=== PATIENT | male | born 1970 | race Caucasian/White ===

== ENCOUNTER 2019-02-12 06:59 | Observation (INO) | payer OTHER, SELFPAY ==
[2019-02-12] VITALS (16 sets, daily range): BP systolic 119–170; BP diastolic 67–94; PULSE 51–91; RESP 10–18; TEMP 36.3–37.2; O2SAT 93–100; BMI 21.9; BMI 23.1
--- NOTE | 2019-02-12 07:35 | EKG12_ITS ---
Test Reason : ABDOMINAL PAIN Blood Pressure : / mmHG Vent. Rate : 050 BPM Atrial Rate : 050 BPM P-R Int : 160 ms QRS Dur : 096 ms QT Int : 490 ms P-R-T Axes : 065 086 070 degrees QTc Int : 446 ms Sinus bradycardia Low voltage QRS (limb leads) Confirmed by CHRISTEL MAURICE, EMILY ([id number]), purchase request editor AMELIA ZHOU ([id number]) on 02/16/2019 6:29:34 AM Referred By: Emelyn Juan Confirmed By:EMILY KEARNEY MD
--- NOTE | 2019-02-12 07:35 | CT_ITS ---
STUDY: CT ABDOMEN AND PELVIS WITH CONTRAST REASON FOR EXAM: Male, 48 years old. Upper abdominal pain. RADIATION DOSAGE (If Supplied By Facility): CTDIvol = ( 14.91 ) mGy, DLP = ( 1434.79 ) mGycm TECHNIQUE: Transaxial images were obtained from the dome of the diaphragm to the symphysis pubis with oral contrast. 100 IV/Oral Isovue 300 was administered. Sagittal and coronal images were reconstructed. Individualized dose optimization techniques were used for this CT. COMPARISON: None. FINDINGS: The visualized lung bases are unremarkable. The visualized portions of the heart are within normal limits. Normal liver. Normal gallbladder and extrahepatic biliary system. Normal spleen. Normal pancreas. Normal bilateral adrenal glands. Normal right kidney. There is a 2.5 cm cyst in the upper pole of the left kidney. The stomach is distended with oral contrast. There is thickening of the distal portion of the stomach. Gastric outlet obstruction should be ruled out. Normal small intestine. There are multiple colonic diverticula consistent with diverticulosis. The appendix is visualized and appears normal. There is diffuse atherosclerotic calcification of the abdominal aorta, without a demonstrated aneurysm. Normal inferior vena cava. There is borderline retroperitoneal lymphadenopathy with enlarged nodes no greater than 10mm in the short axis diameter. Edematous changes are seen in the mesentery. Inflammatory changes see be ruled out. Normal urinary bladder. There is enlargement of the seminal vesicles bilaterally. Small amount of free fluid is seen in the pelvis. Normal abdominal wall. Spondylosis and disc space narrowing at the L3-L4 level. CT/Abdomen/Pelvis WITH Contrast IMPRESSION: The stomach is distended with oral contrast. There is thickening of the distal portion of the stomach. Gastric outlet obstruction should be ruled out. There is evidence of edematous changes within the mesentery. Inflammatory process should be ruled out. Electronically Signed: Valeriano Martin, at 10:09 EDT , Service support ,
[2019-02-12] MEDS: Ondansetron 4 MG/2 ML Vial IV ×2 (07:46→08:26)
[2019-02-12] MEDS: HYDROmorphone 1 MG/ML Syringe IV ×3 (07:46→13:35)
[2019-02-12] MEDS: 0.9% Normal Saline 1,000 ML 125 ML IV (07:46)
[2019-02-12 07:56] LABS: Absolute Lymphocyte Count 1.11 X10^3/ul (0.83-4.51); Basophil# 0.02 X10^3/uL; Basophil% 0.2 % (0-1); Eosinophil# 0.09 X10^3/uL; Eosinophils% 0.7 % (0-5); Lymphocyte # 1.11 X10^3/ul (4.0); Lymphocyte % 8.7 % (19-41); Mean Corp Hgb Conc 35.6 g/gl (32-36); Mean Corpuscular Hgb 31.1 pg (27.0-32.0); Mean Corpuscular Volume 87.5 fL (80-94); Mean Platelet Vol. 10.4 fl (6.2-12.0); Monocyte# 0.52 X10^3/uL; Monocyte% 4.1 % (0-10); Neutrophil # 10.96 X10^3/uL (2.7-7.7); Neutrophil % 86.1 % (47-70); Platelet Count 286 K/mm3 (150-450); RBC Distribution Width CV 13.8 % (11.6-14.6); RBC Distribution Width SD 44.4 fl (35.1-43.9); Red Blood Count 5.14 M/mm3 (4.6-6.2); White Blood Count 12.7 K/mm3 (4.4-11.0)
[2019-02-12 07:59] LABS: POSITIVE COUNT NO; POSITIVE DIFFERENTIAL NO; POSITIVE MORPHOLOGY NO
[2019-02-12 08:13] LABS: AST(SGOT) 14 U/L (15-37); Alanine Aminotransfer ALT/SGPT 15 U/L (16-61); Albumin, Serum 3.9 g/dL (3.2-5.0); Alkaline Phosphatase 105 U/L (45-117); Anion Gap 8 (5-15); BUN 11 mg/dL (7-18); BUN/Creat Ratio 12.7 RATIO (10-20); Chloride 99 mmol/L (98-107); Creatinine, Serum 0.87 mg/dL (0.70-1.30); EST Glomerular Filtration Rate 99 mL/min (>60); Est Glom Filt Rate - Afr Amer 120 mL/min (>60); Estimated Creatinine Clearance 105.32 ml/min; Globulin 3.9 g/dL (2.2-4.2); Glucose 137 mg/dL (74-106); Lipase 84 U/L (73-393); Potassium 3.9 mmol/L (3.5-5.1); Protein, Total 7.8 g/dL (6.4-8.2); Sodium Level 133 mmol/L (136-145)
[2019-02-12 11:00] LABS: Bacteria 0 SEEN /hpf (None Seen); Mucous, Urine 0 SEEN /hpf (<or=2+); Squamous Epithelial Cells - UA 0 SEEN /hpf (0-5); White Blood Cells 0 SEEN /hpf (0-5)
[2019-02-12 11:03] LABS: Color, Urine Yellow (Yellow); Glucose, Dipstick 50 mg/dl (Normal); Ketone-Dipstick 15 mg/dl (Negative); Leukocyte Esterase-Dipstick Negative /ul (Negative); Nitrite-Dipstick Negative (Negative); Occult Blood-Urine 25 /ul (Negative); Protein-Dipstick 15 mg/dl (Negative); Specific Gravity, Urine 1.005 (1.002-1.030); Urine Bilirubin Dipstick Negative (Negative); Urine Clarity Clear (Clear); Urine Urobilinogen Normal (Normal)
[2019-02-12 11:10] LABS: Red Blood Cells-Urine 0-5 SEEN /hpf (0-5)
--- NOTE | 2019-02-12 11:51 | ED.DCSUM_ITS ---
- ER Visit Summary Date of Service: 02/12/19 Chief Complaint: [Abdominal pain] History of Present Illness: The patient is a 48 M [presents the emergency department with sudden onset of abdominal pain that woke him up around 3 AM. Patient states the pain is been continuous in the upper abdomen. He had some sweats. He denies any fever. Said no vomiting. Patient rates his pain as 10 out of 10. He is never had pain like this before. He denies any diarrhea or blood in his stool. No history of GERD or peptic ulcer disease.] Physical Examination: [HEENT-PERRLA, EOMI. Cranial nerves II through XII grossly intact. TMs clear. Mucous membranes moist. No adenopathy. Cardiovascular-regular rate and rhythm without murmur or ectopy Lungs-clear to auscultation, chest wall stable without crepitus or subcu emphysema Abdomen-normoactive bowel sounds, soft. Patient has diffuse tenderness over the upper abdomen especially the epigastric region with guarding. There is no rebound, rigidity, or perineal signs. No pulsatile masses noted. Extremities-intact ?4, normal range of motion, normal pulses, atraumatic] Test Results: [CBC with differential white count of 12.7, hemoglobin 16, hematocrit 45, placed 286. Chemistries unremarkable. LFTs were normal. Lipase was 84. Troponin is less than 0.015. Lactate was normal at 1.0. EKG showed a sinus rhythm with a ventricular rate of 50 bpm with no acute I segment changes. CT scan of the abdomen pelvis showed thickening of the distal portion of the stomach and gastric outlet obstruction should be ruled out. Patient also had edematous changes within the mesentery inflammatory process should be ruled out.] Emergency Department Course and Treatment: [Patient was medicated with Dilaudid and Zofran and had to be remedicated with Dilaudid for continued pain.] Treatment Plan: [Case was discussed with general surgeon on-call Dr. Juan who will admit patient. I was asked to pace NG tube to low intermittent suction which was ordered.] Disposition: [Admit] Impression: [Abdominal pain Gastric outlet obstruction] This note was generated with [employer] dictation software. It may contain incorrect words, spelling, and punctuation that were not noted in review of the chart prior to signing ED Disposition - Plan for ED Patient: Referrals: Care Physician,No Primary [Primary Care Provider] -
--- NOTE | 2019-02-12 12:47 | NURSING ---
RN RECEIVED NOTIFICATION FROM MONISHA THAT PIECER ORDERED TO HOLD NG AND NOT INSERT
--- NOTE | 2019-02-12 14:03 | HP.PCM_ITS ---
<Emelyn Juan - Last Filed: 02/12/19 15:19> History of Present Illness The patient is a 48 year old M patient did have continued abdominal pain today and needed Dilaudid 1 mg. Patient's last got Dilaudid at 1:30 PM. Patient last had about bowel movement yesterday which was normal denies any family history of ulcerative colitis or Crohn's disease. Patient denies ever having pain like this previously. Patient did have some nausea vomiting after drinking oral contrast. He also recently just had some nausea and vomiting. Patient states that prior to 3 AM he was feeling normal and not having any issues. Past Medical History Allergies adhesive tape Adverse Reaction (Verified 02/12/19 14:39) Rash Home Medications: Ambulatory Orders Medication Instructions Recorded NK 02/12/19 Surgical History: - - Patient had a right chest tube due to a spontaneous pneumothorax Psychiatric History: No pertinent psych hx Lives: With Family Smoking Status: Current every day smoker Tobacco Use: Cigarettes - *Family History Maternal History Items: No pertinent history Review of Systems Constitutional: Denies: Anorexia, Fever Gastrointestinal: Reports: Abdominal Pain, Nausea, Vomiting Genitourinary: Denies: Dysuria VTE Information - Inpt Only VTE Present on Admission: Yes VTE Mechan Device Prophylaxis: SCD's VTE Pharm Prophylaxis ordered?: No Reason prophylaxis not ordered:: Medical Contraindication - surgery Patient Problems: Active and Suspected Problems Abdominal pain (Acute) - Physical Exam General: Alert, Oriented x3, Cooperative, No apparent distress Lungs: Normal air movement Cardiovascular: Regular rate Abdomen: Soft, Non-Distended, Tender - periumb, no PS Extremities: No clubbing, No cyanosis, No edema Neurological: Cranial nerves II-XII grossly intact Psych/Mental Status: Normal Affect Vital Signs Temp Pulse Resp BP Pulse Ox 97.8 F 67 16 152/93 H 98 02/12/19 14:43 02/12/19 14:43 02/12/19 14:43 02/12/19 14:43 02/12/19 14:43 Oxygen Delivery Method Room Air Weight: 170 lb 6 oz Body Mass Index (BMI) 23.1 Laboratory Tests Past 24 Hrs 02/12/19 02/12/19 02/12/19 07:45 07:45 07:50 WBC 12.7 H RBC 5.14 Hgb 16.0 Hct 45.0 MCV 87.5 MCH 31.1 MCHC 35.6 RDW 13.8 RDW Differential 44.4 H Plt Count 286 MPV 10.4 Immature Gran % (Auto) 0.200 Neut % (Auto) 86.1 H Lymph % (Auto) 8.7 L Isabela % (Auto) 4.1 Eos % (Auto) 0.7 Baso % (Auto) 0.2 Absolute Neuts (auto) 11.0 H Absolute Lymphs (auto) 1.11 Total Counted Not Reportable Sodium 133 L Potassium 3.9 Chloride 99 Carbon Dioxide 26.0 Anion Gap 8 BUN 11 Creatinine 0.87 Estim Creat Clear Calc 105.32 Est GFR (MDRD) Af Amer 120 Est GFR (MDRD) Non-Af 99 BUN/Creatinine Ratio 12.7 Glucose 137 H Lactic Acid 1.0 Calcium 9.0 Total Bilirubin 0.30 AST 14 L ALT 15 L Alkaline Phosphatase 105 Troponin I < 0.015 Total Protein 7.8 Albumin 3.9 Globulin 3.9 Albumin/Globulin Ratio 1.0 Lipase 84 Urine Color Urine Clarity Urine pH Ur Specific [place] Urine Protein Urine Glucose (UA) Urine Ketones Urine Occult Blood Urine Nitrite Urine Bilirubin Urine Urobilinogen Ur Leukocyte Esterase Urine RBC Urine WBC Ur Squamous Epith Cells Urine Bacteria Urine Mucus 02/12/19 02/12/19 10:55 14:30 WBC RBC Hgb Hct MCV MCH MCHC RDW RDW Differential Plt Count MPV Immature Gran % (Auto) Neut % (Auto) Lymph % (Auto) Isabela % (Auto) Eos % (Auto) Baso % (Auto) Absolute Neuts (auto) Absolute Lymphs (auto) Total Counted Sodium Potassium Chloride Carbon Dioxide Anion Gap BUN Creatinine Estim Creat Clear Calc Est GFR (MDRD) Af Amer Est GFR (MDRD) Non-Af BUN/Creatinine Ratio Glucose Lactic Acid 0.8 Calcium Total Bilirubin AST ALT Alkaline Phosphatase Troponin I Total Protein Albumin Globulin Albumin/Globulin Ratio Lipase Urine Color Yellow Urine Clarity Clear Urine pH 7.0 Ur Specific [place] 1.005 Urine Protein 15 H Urine Glucose (UA) 50 H Urine Ketones 15 H Urine Occult Blood 25 H Urine Nitrite Negative Urine Bilirubin Negative Urine Urobilinogen Normal Ur Leukocyte Esterase Negative Urine RBC 0-5 SEEN Urine WBC 0 SEEN Ur Squamous Epith Cells 0 SEEN Urine Bacteria 0 SEEN Urine Mucus 0 SEEN Assessment/Plan All Active Problems Abdominal pain (Acute) 48-year-old male with dilated stomach, edema of the small bowel mesentery, leukocytosis of 12.7 1. Initially plan to do an EGD take a look at the patient's stomach however patient still continued to have abdominal pain and he does have quite a bit of edema to the distal small bowel question is whether this edema could be due to any issues with blood supply or possible internal hernia no these are not obvious on CT. Patient's lactic acid has been within normal range the patient continues to have pain even after getting 1 of Dilaudid. Discussed the procedure with the patient and his diagnostic laparoscopy, possible laparotomy, possible bowel resection. Including risk but not limited to bleeding, infection, injury to another organ, and anesthesia patient currently does not want to make a decision until he sees his kids. left to go get his kids. He is aware that we are planning surgery for this evening. Patient no further questions at this time. He does understand that we may not find anything and mesentery of bowel may be edematous or there could be a possible he rnia which we may be able to rearrange or he may need bowel resection. Emelyn Juan M.D. Pager: [phone] [facility] [address] [place] [address], [facility], [address] [place] [address] Office: [phone] <Sheela Mosley - Last Filed: 02/12/19 15:43> Problem List (1) Abdominal pain Status: Acute History of Present Illness Date of Admission: 02/12/19 Chief Complaint: Abdominal pain The patient is a 48 year old M who presents with severe abdominal pain starting at 0300 AM this morning. Patient denies nausea, vomiting. He denies change in bowel habits. He has never had this pain previously. CT scan of the ab/pel demonstrated The stomach is distended with oral contrast. There is thickening of the distal portion of the stomach. Concerning for gastric outlet obstruction. There is evidence of edematous changes within the mesentery. Patient denies history of diabetes. He notes only procedure was chest tube placement. Patient denies previous abdominal surgery. Past Medical History Allergies No Known Allergies Allergy (Verified 02/12/19 07:00) Surgical History: - Smoking Status: Current every day smoker Alcohol: Occasional Drugs: Marijuana - *Family History Paternal History Items: Diabetes Review of Systems Constitutional: Denies: Anorexia, Fever HEENT: Denies: Head Aches, Sinus Congestion, Sinus Drainage Cardiovascular: Denies: Chest Pain, Palpitations Respiratory: Denies: Cough, Shortness of breath at rest, Sputum production Gastrointestinal: Reports: Abdominal Pain, Nausea, Vomiting Genitourinary: Denies: Dysuria Musculoskeletal: Denies: Joint Pain, Joint Tenderness Skin: Denies: Rash, Wounds Neurological: Denies: Numbness, Tingling, Focal weakness Psychiatric: Denies: Anxiety, Depression, Homicidal Ideations, Suicidal Ideations Hematologic/ Lymphatic: Denies: Easy Bruising, Easy Bleeding VTE Information - Inpt Only VTE Present on Admission: Yes VTE Mechan Device Prophylaxis: SCD's - Physical Exam General: Alert, Oriented x3, Cooperative HEENT: Atraumatic, PERRLA, EOMI, Normocephalic Neck: Supple, No JVD, Negative Carotid Bruits Lungs: Clear to auscultation, Normal air movement Cardiovascular: Regular rate, No murmurs Abdomen: Bowel Sounds Present, Soft, Non-Distended, Tender - epigastric region Extremities: No clubbing, No cyanosis, No edema, Capillary Refill Less than 3 Seconds Skin: No rashes, No breakdown Musculoskeletal: No Tenderness to Palpation of Joints or Extremities Neurological: Cranial nerves II-XII grossly intact Psych/Mental Status: Normal Affect Vital Signs Temp Pulse Resp BP Pulse Ox 98 F 57 L 10 L 167/91 H 95 02/12/19 11:00 02/12/19 11:00 02/12/19 11:00 02/12/19 11:00 02/12/19 11:00 Oxygen Delivery Method Room Air Weight: 161 lb 9.581 oz Body Mass Index (BMI) 21.9 Laboratory Tests Past 24 Hrs 02/12/19 02/12/19 02/12/19 07:45 07:45 07:50 WBC 12.7 H RBC 5.14 Hgb 16.0 Hct 45.0 MCV 87.5 MCH 31.1 MCHC 35.6 RDW 13.8 RDW Differential 44.4 H Plt Count 286 MPV 10.4 Immature Gran % (Auto) 0.200 Neut % (Auto) 86.1 H Lymph % (Auto) 8.7 L Isabela % (Auto) 4.1 Eos % (Auto) 0.7 Baso % (Auto) 0.2 Absolute Neuts (auto) 11.0 H Absolute Lymphs (auto) 1.11 Total Counted Not Reportable Sodium 133 L Potassium 3.9 Chloride 99 Carbon Dioxide 26.0 Anion Gap 8 BUN 11 Creatinine 0.87 Estim Creat Clear Calc 105.32 Est GFR (MDRD) Af Amer 120 Est GFR (MDRD) Non-Af 99 BUN/Creatinine Ratio 12.7 Glucose 137 H Lactic Acid 1.0 Calcium 9.0 Total Bilirubin 0.30 AST 14 L ALT 15 L Alkaline Phosphatase 105 Troponin I < 0.015 Total Protein 7.8 Albumin 3.9 Globulin 3.9 Albumin/Globulin Ratio 1.0 Lipase 84 Urine Color Urine Clarity Urine pH Ur Specific [place] Urine Protein Urine Glucose (UA) Urine Ketones Urine Occult Blood Urine Nitrite Urine Bilirubin Urine Urobilinogen Ur Leukocyte Esterase Urine RBC Urine WBC Ur Squamous Epith Cells Urine Bacteria Urine Mucus 02/12/19 10:55 WBC RBC Hgb Hct MCV MCH MCHC RDW RDW Differential Plt Count MPV Immature Gran % (Auto) Neut % (Auto) Lymph % (Auto) Isabela % (Auto) Eos % (Auto) Baso % (Auto) Absolute Neuts (auto) Absolute Lymphs (auto) Total Counted Sodium Potassium Chloride Carbon Dioxide Anion Gap BUN Creatinine Estim Creat Clear Calc Est GFR (MDRD) Af Amer Est GFR (MDRD) Non-Af BUN/Creatinine Ratio Glucose Lactic Acid Calcium Total Bilirubin AST ALT Alkaline Phosphatase Troponin I Total Protein Albumin Globulin Albumin/Globulin Ratio Lipase Urine Color Yellow Urine Clarity Clear Urine pH 7.0 Ur Specific [place] 1.005 Urine Protein 15 H Urine Glucose (UA) 50 H Urine Ketones 15 H Urine Occult Blood 25 H Urine Nitrite Negative Urine Bilirubin Negative Urine Urobilinogen Normal Ur Leukocyte Esterase Negative Urine RBC 0-5 SEEN Urine WBC 0 SEEN Ur Squamous Epith Cells 0 SEEN Urine Bacteria 0 SEEN Urine Mucus 0 SEEN Assessment/Plan I am seeing this patient in conjunction with Dr. Juan. Impression: Abdominal pain. Plan: Discussed the patient with Dr. Juan. Dr. Juan was planning to perform an upper scope, however patient vomited again once up on med/surg floor. Dr. Juan is planning to perform a diagnostic laparotomy today. This has been discussed with the patient. Patient and her have had the opportunity to ask and have questions answered. Code Visit Office Visits / Consults: [id number] IP Consult L3
[2019-02-12 15:05] LABS: Lactic Acid 0.8 mmol/L (0.4-2.0)
--- NOTE | 2019-02-12 16:13 | RAD_ITS ---
STUDY: X-RAY - ABDOMEN/PELVIS REASON FOR EXAM: Male, 48 years old. Nasogastric tube placement TECHNIQUE: Single AP view of the abdomen / pelvis. COMPARISON: None. FINDINGS: Normal visualized lung bases. A nasogastric tube is seen with tip projecting over the left mid abdomen. There is an unremarkable bowel gas pattern. There is no demonstrated free abdominal air. The visualized liver, spleen and kidneys are grossly normal in size and morphology. Normal soft tissue structures. Normal visualized osseous structures. RAD/Abdomen Single View IMPRESSION: Nasogastric tube seen with tip projecting over the left midabdomen. There is no evidence of ileus or obstruction. Electronically Signed: Waldemar Flores MD at 16:53 EDT , Service support ,
--- NOTE | 2019-02-12 16:27 | SUR.PREOP ---
AT APPOXIMATELY 1600, NG TUBE INSERTED VIA RIGHT NARES INTO STOMACH. PLACEMENT VERIFIED WITH AIR BOLUS. X-RAY ORDERED FOR FURTHER PLACEMENT VERIFICATION
--- NOTE | 2019-02-12 17:21 | PCM.OPRPT ---
Report of Operation Date of Procedure: 02/12/19 Pre-Operative Diagnosis: Small bowel mesenteric edema, leukocytosis, possible bowel obstruction Post-Operative Diagnosis: Internal hernia causing a small bowel obstruction Surgery/Procedure Performed:: Diagnostic laparoscopy, lysis of adhesion of the omentum, release of small bowel obstruction snack steward: Clair Carlos Type of Anesthesia:: General/Supplemental Anesthesiologist: Zhao Jesus Special Medications: Cefotan 2 g IV x1 Specimen's removed: None Estimated Blood Loss (mL): <10 cc Fluids Replaced: 900 cc Description of Procedure: Indications: 48-year-old male presented with new periumbilical abdominal pain starting this morning. CT abdomen pelvis was done showed some edema of the small bowel mesentery, dilated stomach, leukocytosis of 12.7. Patient was also having nausea and vomiting and the abdominal pain was continuing even after receiving Dilaudid. Discuss diagnostic laparoscopy with the patient he is agreeable to proceed. Description of procedure: Patient brought into the operating room placed supine on the operating table. An NG was previously placed in PACU. Timeout was planned verifying correct patient, procedure, site, positioning and special equipment prior to beginning procedure. Patient's arms were tucked and padded appropriately. General anesthesia was induced. The abdomen was prepped draped in usual sterile fashion. Incision was made in the supraumbilical midline with a 15 blade scalpel. The fascia was elevated and incised. Peritoneum was elevated and incised. Entrance of the abdomen was confirmed visually. Mcdaniel trocar was placed. The abdomen was insufflated to 15 mmHg. Patient tolerated sedation well. Laparoscope was placed. No initial injury from port placement was confirmed. 2 additional 5 mm trocar placed in the lateral right lower quadrant and the lateral right upper quadrant. There is noted to be some turbulent fluid in the pelvis, which was suctioned. The bowel was ran starting at the terminal ileum which the bowel was decompressed. At the mid jejunum there is noted to be some omentum from the transverse colon which was causing an internal hernia. This was able to be divided with scissors. The bowel again was reran to confirm that there is no other site of adhesions or obstruction. Small bowel was patent and viable. The 5 mm trochars were removed under direct visualization. The abdomen was allowed to collapse. The 12 mm trocar site was closed with a [id number] 0 Vicryl suture. The wounds were irrigated. Local anesthesia of 0.5% Marcaine was used. The skin was closed with 4-0 Monocryl interrupted sutures. Incisions are dressed with Steri-Strips and OpSite. NG was removed at the end of the case. Patient was extubated. Patient tolerated procedure well transferred to PACU in stable condition. - Complications none
[2019-02-12] MEDS: Bupiv/Epi 0.5% Mpf 30 ML Vial (17:22)
--- NOTE | 2019-02-12 17:28 | OP.PCM_ITS ---
Report of Operation Date of Procedure: 02/12/19 Pre-Operative Diagnosis: Small bowel mesenteric edema, leukocytosis, possible bowel obstruction Post-Operative Diagnosis: Internal hernia causing a small bowel obstruction Surgery/Procedure Performed:: Diagnostic laparoscopy, lysis of adhesion of the omentum, release of small bowel obstruction director of digital platforms: Clair Carlos Type of Anesthesia:: General/Supplemental Anesthesiologist: Zhao Jesus Special Medications: Cefotan 2 g IV x1 Specimen's removed: None Estimated Blood Loss (mL): <10 cc Fluids Replaced: 900 cc Description of Procedure: Indications: 48-year-old male presented with new periumbilical abdominal pain s tarting this morning. CT abdomen pelvis was done showed some edema of the small bowel mesentery, dilated stomach, leukocytosis of 12.7. Patient was also having nausea and vomiting and the abdominal pain was continuing even after receiving Dilaudid. Discuss diagnostic laparoscopy with the patient he is agreeable to proceed. Description of procedure: Patient brought into the operating room placed supine on the operating table. An NG was previously placed in PACU. Timeout was planned verifying correct patient, procedure, site, positioning and special equipment prior to beginning procedure. Patient's arms were tucked and padded appropriately. General anesthesia was induced. The abdomen was prepped draped in usual sterile fashion. Incision was made in the supraumbilical midline with a 15 blade scalpel. The fascia was elevated and incised. Peritoneum was elevated and incised. Entrance of the abdomen was confirmed visually. Mcdaniel trocar was placed. The abdomen was insufflated to 15 mmHg. Patient tolerated sedation well. Laparoscope was placed. No initial injury from port placement was confirmed. 2 additional 5 mm trocar placed in the lateral right lower quadrant and the lateral right upper quadrant. There is noted to be some turbulent fluid in the pelvis, which was suctioned. The bowel was ran starting at the terminal ileum which the bowel was decompressed. At the mid jejunum there is noted to be some omentum from the transverse colon which was causing an internal hernia. This was able to be divided with scissors. The bowel again was reran to confirm that there is no other site of adhesions or obstruction. Small bowel was patent and viable. The 5 mm trochars were removed under direct visualization. The abdomen was allowed to collapse. The 12 mm trocar site was closed with a [id number] 0 Vicryl suture. The wounds were irrigated. Local anesthesia of 0.5% Marcaine was used. The skin was closed with 4-0 Monocryl interrupted sutures. Incisions are dressed with Steri-Strips and OpSite. NG was removed at the end of the case. Patient was extubated. Patient tolerated procedure well transferred to PACU in stable condition. - Complications none
[2019-02-12] MEDS: oxyCODONE 5 MG Tablet PO (20:01)
[2019-02-13] MEDS: oxyCODONE 5 MG Tablet PO ×4 (01:10→21:00)
[2019-02-13 04:33] VITALS: BP 122/69; PULSE 65; RESP 16; TEMP 37.2; O2SAT 98
[2019-02-13 06:00] LABS: Absolute Neutrophil Count 8.4 X10^3/uL (2.0-7.7); Basophil# 0.03 X10^3/uL; Basophil% 0.2 % (0-1); Eosinophil# 0.23 X10^3/uL; Eosinophils% 1.9 % (0-5); Hematocrit 46.5 % (40-54); Hemoglobin 15.8 g/dl (13.0-16.5); Lymphocyte % 19.1 % (19-41); Mean Corpuscular Hgb 29.8 pg (27.0-32.0); Mean Corpuscular Volume 87.7 fL (80-94); Mean Platelet Vol. 10.7 fl (6.2-12.0); Monocyte# 1.07 X10^3/uL; Monocyte% 8.9 % (0-10); Neutrophil # 8.38 X10^3/uL (2.7-7.7); Neutrophil % 69.7 % (47-70); Platelet Count 314 K/mm3 (150-450); RBC Distribution Width CV 14.3 % (11.6-14.6); RBC Distribution Width SD 46.1 fl (35.1-43.9)
[2019-02-13 06:07] LABS: POSITIVE COUNT NO; POSITIVE DIFFERENTIAL NO; POSITIVE MORPHOLOGY NO
[2019-02-13 06:12] LABS: Anion Gap 8 (5-15); BUN 5 mg/dL (7-18); Calcium,Total 8.6 mg/dL (8.5-10.1); Chloride 101 mmol/L (98-107); Creatinine, Serum 1.01 mg/dL (0.70-1.30); EST Glomerular Filtration Rate 83 mL/min (>60); Est Glom Filt Rate - Afr Amer 101 mL/min (>60); Estimated Creatinine Clearance 95.64 ml/min; Glucose 89 mg/dL (74-106); Potassium 4.1 mmol/L (3.5-5.1); Sodium Level 138 mmol/L (136-145)
--- NOTE | 2019-02-13 07:09 | PN.SURG_ITS ---
Patient Problems: Active and Suspected Problems Abdominal pain (Acute) Subjective: Patient states that previous abdominal pain has resolved, does have soreness at incisions. Patient is tolerating clears denies any nausea or vomiting. Patient denies any flatus is voiding well - Physical Exam General: Alert, Oriented x3, Cooperative, No apparent distress HEENT: Atraumatic Abdomen: Soft, Distended - Mild, Tender - Tender near incisions incisions clean dry and intact with OpSite Extremities: No clubbing, No cyanosis, No edema Neurological: Cranial nerves II-XII grossly intact Psych/Mental Status: Normal Affect Vital Signs Temp Pulse Resp BP Pulse Ox 98.9 F 65 16 122/69 H 98 02/13/19 04:33 02/13/19 04:33 02/13/19 04:33 02/13/19 04:33 02/13/19 04:33 Oxygen Delivery Method Room Air Weight: 170 lb 6 oz Body Mass Index (BMI) 23.1 Intake and Output for Last 24 Hours 02/11/19 02/12/19 02/13/19 23:59 23:59 23:59 Intake Total 1500 / 1500 2213 / 2213 Output Total 700 / 700 1900 / 1900 Balance 800 / 800 313 / 313 Laboratory Tests Past 24 Hrs 02/12/19 02/12/19 02/12/19 07:45 07:45 07:50 WBC 12.7 H RBC 5.14 Hgb 16.0 Hct 45.0 MCV 87.5 MCH 31.1 MCHC 35.6 RDW 13.8 RDW Differential 44.4 H Plt Count 286 MPV 10.4 Immature Gran % (Auto) 0.200 Neut % (Auto) 86.1 H Lymph % (Auto) 8.7 L [place] % (Auto) 4.1 Eos % (Auto) 0.7 Baso % (Auto) 0.2 Absolute Neuts (auto) 11.0 H Absolute Lymphs (auto) 1.11 Total Counted Not Reportable Sodium 133 L Potassium 3.9 Chloride 99 Carbon Dioxide 26.0 Anion Gap 8 BUN 11 Creatinine 0.87 Estim Creat Clear Calc 105.32 Est GFR (MDRD) Af Amer 120 Est GFR (MDRD) Non-Af 99 BUN/Creatinine Ratio 12.7 Glucose 137 H Lactic Acid 1.0 Calcium 9.0 Total Bilirubin 0.30 AST 14 L ALT 15 L Alkaline Phosphatase 105 Troponin I < 0.015 Total Protein 7.8 Albumin 3.9 Globulin 3.9 Albumin/Globulin Ratio 1.0 Lipase 84 Urine Color Urine Clarity Urine pH Ur Specific [place] Urine Protein Urine Glucose (UA) Urine Ketones Urine Occult Blood Urine Nitrite Urine Bilirubin Urine Urobilinogen Ur Leukocyte Esterase Urine RBC Urine WBC Ur Squamous Epith Cells Urine Bacteria Urine Mucus 02/12/19 02/12/19 02/13/19 10:55 14:30 05:25 WBC 12.0 H RBC 5.30 Hgb 15.8 Hct 46.5 MCV 87.7 MCH 29.8 MCHC 34.0 RDW 14.3 RDW Differential 46.1 H Plt Count 314 MPV 10.7 Immature Gran % (Auto) 0.200 Neut % (Auto) 69.7 Lymph % (Auto) 19.1 [place] % (Auto) 8.9 Eos % (Auto) 1.9 Baso % (Auto) 0.2 Absolute Neuts (auto) 8.4 H Absolute Lymphs (auto) 2.30 Total Counted Not Reportable Sodium Potassium Chloride Carbon Dioxide Anion Gap BUN Creatinine Estim Creat Clear Calc Est GFR (MDRD) Af Amer Est GFR (MDRD) Non-Af BUN/Creatinine Ratio Glucose Lactic Acid 0.8 Calcium Total Bilirubin AST ALT Alkaline Phosphatase Troponin I Total Protein Albumin Globulin Albumin/Globulin Ratio Lipase Urine Color Yellow Urine Clarity Clear Urine pH 7.0 Ur Specific [place] 1.005 Urine Protein 15 H Urine Glucose (UA) 50 H Urine Ketones 15 H Urine Occult Blood 25 H Urine Nitrite Negative Urine Bilirubin Negative Urine Urobilinogen Normal Ur Leukocyte Esterase Negative Urine RBC 0-5 SEEN Urine WBC 0 SEEN Ur Squamous Epith Cells 0 SEEN Urine Bacteria 0 SEEN Urine Mucus 0 SEEN 02/13/19 05:25 WBC RBC Hgb Hct MCV MCH MCHC RDW RDW Differential Plt Count MPV Immature Gran % (Auto) Neut % (Auto) Lymph % (Auto) [place] % (Auto) Eos % (Auto) Baso % (Auto) Absolute Neuts (auto) Absolute Lymphs (auto) Total Counted Sodium 138 Potassium 4.1 Chloride 101 Carbon Dioxide 29.0 Anion Gap 8 BUN 5 L Creatinine 1.01 Estim Creat Clear Calc 95.64 Est GFR (MDRD) Af Amer 101 Est GFR (MDRD) Non-Af 83 BUN/Creatinine Ratio 5.0 L Glucose 89 Lactic Acid Calcium 8.6 Total Bilirubin AST ALT Alkaline Phosphatase Troponin I Total Protein Albumin Globulin Albumin/Globulin Ratio Lipase Urine Color Urine Clarity Urine pH Ur Specific [place] Urine Protein Urine Glucose (UA) Urine Ketones Urine Occult Blood Urine Nitrite Urine Bilirubin Urine Urobilinogen Ur Leukocyte Esterase Urine RBC Urine WBC Ur Squamous Epith Cells Urine Bacteria Urine Mucus Medical Necessity - Tobacco Use Smoking Status: Current every day smoker Tobacco Use: Cigarettes Assessment/Plan All Active Problems Abdominal pain (Acute) 48-year-old male postop day 1 from a diagnostic laparoscopy, lysis of adhesion, release of internal hernia 1. Okay to advance to full's. Await bowel function and will plan to advance to regular diet. Emelyn Juan M.D. Pager: [phone] [facility] [address] [place] [address], [address] [place] [id number] Office: [phone]
[2019-02-13] MEDS: Docusate Sodium 100 MG Capsule PO ×2 (08:00→21:04)
[2019-02-13] MEDS: Acetaminophen 325 MG Tablet 650 MG PO (08:00)
[2019-02-13 09:28] VITALS: BP 130/77; PULSE 59; RESP 18; TEMP 36.7; O2SAT 98
[2019-02-13] MEDS: Pantoprazole Sodium 40 MG Tablet PO (10:21)
[2019-02-13] MEDS: 0.9% NaCl Peripheral Flush Adult/Peds IV (11:43)
[2019-02-13] MEDS: Ibuprofen 400 MG Tablet 800 MG PO (14:48)
[2019-02-13 14:55] VITALS: BP 130/77; PULSE 67; RESP 18; TEMP 36.9; O2SAT 97
[2019-02-13 20:46] VITALS: BP 144/92; PULSE 76; RESP 18; TEMP 36.9; O2SAT 98
[2019-02-13 20:50] VITALS: PULSE 76; RESP 18; O2SAT 98
[2019-02-14 02:46] VITALS: BP 121/72; PULSE 64; RESP 16; TEMP 36.7; O2SAT 94
[2019-02-14 03:20] VITALS: RESP 18; O2SAT 94
[2019-02-14] MEDS: oxyCODONE 5 MG Tablet PO ×2 (03:24→10:35)
--- NOTE | 2019-02-14 08:36 | PCM.PN.SRG ---
Patient Problems: Active and Suspected Problems Abdominal pain (Acute) Subjective: Patient is doing well, tolerating regular diet, positive flatus - Physical Exam General: Alert, Oriented x3, Cooperative, No apparent distress HEENT: Atraumatic Lungs: Normal air movement Cardiovascular: Regular rate Abdomen: Soft, Non Tender, Non-Distended Extremities: No clubbing, No cyanosis, No edema Neurological: Cranial nerves II-XII grossly intact Vital Signs Temp Pulse Resp BP Pulse Ox 98.1 F 64 18 121/72 H 94 02/14/19 02:46 02/14/19 02:46 02/14/19 03:20 02/14/19 02:46 02/14/19 03:20 Oxygen Delivery Method Room Air Weight: 170 lb 6 oz Body Mass Index (BMI) 23.1 Intake and Output for Last 24 Hours 02/12/19 02/13/19 02/14/19 23:59 23:59 23:59 Intake Total 1500 / 1500 3797 / 3797 1100 / 1100 Output Total 700 / 700 2650 / 2650 Balance 800 / 800 1147 / 1147 1100 / 1100 Medical Necessity - Tobacco Use Smoking Status: Current every day smoker Tobacco Use: Cigarettes Assessment/Plan All Active Problems Abdominal pain (Acute) 48-year-old male postop day 2 from a diagnostic laparoscopy, lysis of adhesion, release of internal hernia 1. Patient tolerating her diet, positive flatus okay to DC home, pain controlled Emelyn Juan M.D. Pager: [phone] [facility] [address] [place] [address], [facility], [address] [place] [id number] Office: [phone]
--- NOTE | 2019-02-14 08:38 | PCM.DC.GS ---
Discharge Diet: Light diet - advance as tolerated Discharge Activity: May not drive while taking narcotic pain medications. May shower in (days): 0 - Okay to shower today Lifting Restrictions: No lifting greater than 20 pounds x 4 weeks Call your doctor if your incision/area has: Continuous Slow Oozing, Sudden Increased Bleeding, Increased Pain/ Swelling, Increased Redness, Foul Smelling Discharge, Swelling at the incision site Call your doctor if you observe: Fever of 101 or Higher Remove Dressing in (days):: 0 - Okay to remove op sites today, Steri-Strips stay on until they fall off however did not call for 10 days okay to remove Additional Instructions: Okay to take ibuprofen 400-600 mg PO q6hr PRN along with the Percocet-however if he gets stomach discomfort with ibuprofen would avoid ibuprofen and track that Tylenol amounts over the day. Caution with Tylenol since there is already Tylenol in the Percocet, Percocet had 325 mg of Tylenol in each pill. Max Tylenol for 24-hour. Is 4000 mg or 4 g. Over the counter Tylenol can either be 325 mg or 500 mg/pill. Take all pain meds with food. Percocet can cause constipation recommend taking daily stool softener (i.e. Colace/docusate) while taking the pain meds. Recommend starting some MiraLAX tomorrow if no bowel movement. If still no bowel movement the following day recommend taking magnesium citrate half the bottle and waiting 4-6 hours if still no results take the other half the bottle. Allergies/Adverse Reactions: Allergies adhesive tape Adverse Reaction (Verified 02/12/19 14:39) Rash Medications to take at Discharge Oxycodone HCl/Acetaminophen [Percocet 5/325] 1 - 2 tablet PO Q4H PRN PRN 5 Days #20 tablet 02/14/19 The following prescriptions were given: Oxycodone HCl/Acetaminophen [Percocet 5/325] 1 - 2 tablet PO Q4H PRN PRN 5 Days #20 tablet PRN Reason: Pain Primary Care Physician: Care Physician,No Primary [Primary Care Provider] - Test Results: Test results from this visit will be discussed in further detail at your follow-up appointment, if applicable. Please Follow Up With: Emelyn Juan MD - After 5:00 on the weekends call [phone] with any concerns When: Call the office for a follow-up appointment in 2 weeks. [phone] Proposed Discharge Date: 02/14/19
--- NOTE | 2019-02-14 08:41 | DCINST_ITS ---
Discharge Diet: Light diet - advance as tolerated Discharge Activity: May not drive while taking narcotic pain medications. May shower in (days): 0 - Okay to shower today Lifting Restrictions: No lifting greater than 20 pounds x 4 weeks Call your doctor if your incision/area has: Continuous Slow Oozing, Sudden Increased Bleeding, Increased Pain/ Swelling, Increased Redness, Foul Smelling Discharge, Swelling at the incision site Call your doctor if you observe: Fever of 101 or Higher Remove Dressing in (days):: 0 - Okay to remove op sites today, Steri-Strips stay on until they fall off however did not call for 10 days okay to remove Additional Instructions: Okay to take ibuprofen 400-600 mg PO q6hr PRN along with the Percocet-however if he gets stomach discomfort with ibuprofen would avoid ibuprofen and track that Tylenol amounts over the day. Caution with Tylenol since there is already Tylenol in the Percocet, Percocet had 325 mg of Tylenol in each pill. Max Tylenol for 24-hour. Is 4000 mg or 4 g. Over the counter Tylenol can either be 325 mg or 500 mg/pill. Take all pain meds with food. Percocet can cause constipation recommend taking daily stool softener (i.e. Colace/docusate) while taking the pain meds. Recommend starting some MiraLAX tomorrow if no bowel movement. If still no bowel movement the following day recommend taking magnesium citrate half the bottle and waiting 4-6 hours if still no results take the other half the bottle. Allergies/Adverse Reactions: Allergies adhesive tape Adverse Reaction (Verified 02/12/19 14:39) Rash Medications to take at Discharge Oxycodone HCl/Acetaminophen [Percocet 5/325] 1 - 2 tablet PO Q4H PRN PRN 5 Days #20 tablet 02/14/19 The following prescriptions were given: Oxycodone HCl/Acetaminophen [Percocet 5/325] 1 - 2 tablet PO Q4H PRN PRN 5 Days #20 tablet PRN Reason: Pain Primary Care Physician: Care Physician,No Primary [Primary Care Provider] - Test Results: Test results from this visit will be discussed in further detail at your follow- up appointment, if applicable. Please Follow Up With: Emelyn Juan MD - After 5:00 on the weekends call [phone] with any concerns When: Call the office for a follow-up appointment in 2 weeks. [phone] Proposed Discharge Date: 02/14/19
[2019-02-14] MEDS: Docusate Sodium 100 MG Capsule PO (10:35)
[2019-02-14] MEDS: Pantoprazole Sodium 40 MG Tablet PO (10:35)
[2019-02-14 10:36] VITALS: BP 131/82; PULSE 67; RESP 18; TEMP 36.4; O2SAT 96
== END 2019-02-14 10:50 | disposition home or self-care (01) ==
LOC: ED 07:48 → MS2 13:04 → MS3 02-13 16:17
PROVIDERS: Physician Assistant; Admitting Provider Surgery; Emergency Provider Emergency Medicine; Referring Provider Surgery; Visit Provider Surgery
PROC: (CPT 49320; principal; 2019-02-12 15:45)
DX: K46.0 Unspecified abdominal hernia with obstruction, without gangrene (principal); F17.210 Nicotine dependence, cigarettes, uncomplicated
CPT/HCPCS: 00750; 49652; 36415; 74018; 74177; 80048; 80053; 81001; 83605; 83690; 84484; 85025; 93005; 96361; 96365; 96375; 96376; 99218; 99284; J7030; J7120; Q9967; A4216; G0378; J2405

== ENCOUNTER 2020-11-25 13:17 | Outpatient (RCR) | payer OTHER, SELFPAY ==
[2019-02-26 13:49] VITALS: BMI 23.1
[2020-11-25] MEDS: COVID-19 VACC, MRNA(PFIZER)/PF 30 MCG/0.3 ML SYRINGE IM (15:47)
[2020-12-16] MEDS: COVID-19 VACC, MRNA(PFIZER)/PF 30 MCG/0.3 ML SYRINGE IM (15:28)
== END 2021-02-17 23:59 ==
LOC: IMMUN 13:17
PROVIDERS: PCP Internal Medicine; Visit Provider Family Medicine
DX: Z23 Encounter for immunization (principal)
CPT/HCPCS: 0001A; 0002A; 91300

== ENCOUNTER 2023-02-15 17:42 | Emergency (ER) | payer OTHER, SELFPAY ==
[2023-02-15 17:43] VITALS: BP 138/87; PULSE 76; RESP 16; TEMP 36.8; O2SAT 98; BMI 22.8
--- NOTE | 2023-02-15 18:00 | RAD_ITS ---
STUDY: X-RAY - UNILATERAL RIBS ( LEFT ) REASON FOR EXAM: Male, 52 years old. INJURY TECHNIQUE: 4 view(s) of the ribs. COMPARISON: None. FINDINGS: Normal visualized ribs without a demonstrated fracture. The visualized lung is clear and expanded. RAD/Ribs Unil 2V No CXR IMPRESSION: Normal x-ray examination of the ribs. Electronically Signed: Jaret Escobedo MD at 18:45 EDT ,
--- NOTE | 2023-02-15 18:05 | RAD_ITS ---
STUDY: X-RAY - LEFT ELBOW REASON FOR EXAM: Male, 52 years old. INJURY TECHNIQUE: 3 view(s) of the elbow. COMPARISON: None. FINDINGS: Normal visualized humerus and ulna. There is subtle lucency with nondisplaced fracture of the radial head. Normal radiocapitellar and ulnotrochlear articulations. There is joint effusion with elevation of the anterior and posterior fat pads . RAD/Elbow min 3 Views IMPRESSION: Radial head fracture. Joint effusion. Electronically Signed: Jaret Escobedo MD at 18:22 EDT ,
--- NOTE | 2023-02-15 19:27 | EX.ED.GENINJ ---
HPI History of Present Illness Chief Complaint: Fall Narrative Narrative: 52-year-old male who denies significant past medical history, [id number], presents with injury to his left ribs and left elbow. He states that he was horsing around with his son, and he tripped and fell onto the ground, onto his left lateral elbow. He denies hitting his head or loss of consciousness. He has a sore spot on his left ribs, but is mainly complaining of pain that is worse with movement of his left elbow. He denies other injuries. He took 2 Aleve prior to coming to the emergency department. [facility] Medical History History of intestinal obstruction History of pneumothorax Home Medications hydrocodone-acetaminophen 5-325mg 5mg-325mg 1 tab PO Q6H PRN pain 3 days #12 tabs 02/15/23 [Rx Last Taken Unknown] Allergy/AdvReac Type Severity Reaction Status Date / Time adhesive tape AdvReac Rash Verified 02/15/23 17:45 Family History Father Diabetes Heart disease Mother Multiple sclerosis Surgical History History of hernia repair History of intestinal surgery History of placement of chest tube S/P laparoscopy Social History Smoking Status: Current every day smoker tobacco type: cigarettes ROS ROS ED ROS Narrative Constitutional: No fever, no chills. HEENT: No sore throat. No neck pain. No loss of vision. No rhinorrhea. Cardiovascular: Left-sided rib/chest wall pain. No palpitations. No pedal edema. Respiratory: No cough, no shortness of breath. Abdominal: No abdominal pain. No nausea. No vomiting. Genitourinary: No dysuria. No hematuria. Musculoskeletal: No myalgias. Left elbow pain worse with movement. Neurologic: No headaches. No dizziness. No lightheadedness. Skin: No rash. No change in color. Psychiatric: No depression. No anxiety. EXAM Physical Exam Narrative Exam Narrative: Afebrile. Vital signs noted. HEENT: Normocephalic. Atraumatic. PERRL, EOMI. Neck soft and supple. No point tenderness or step off. Cardiovascular: Regular rate and rhythm. No murmurs, rubs, or gallops appreciated. Mild tenderness to palpation left lateral ribs, no crepitance. Respiratory: No tachypnea. Lungs clear to auscultation bilaterally. Gastrointestinal: Abdomen soft, nontender, with normoactive bowel sounds. No rebound or guarding. Neurological: Awake. Alert. Nonfocal, nonlateralizing. Skin: No rash. Normal color. No pallor. Musculoskeletal: No pedal edema. Full range of motion extremities. Able to flex and extend left elbow with pronation and supination of wrist but range of motion is mildly limited secondary to pain. Positive point tenderness over radial head. Const Vital Signs: 02/15/23 17:43 02/15/23 19:15 Temperature 98.2 F Temperature Source Temporal Pulse Rate 76 Respiratory Rate 16 Respiratory Effort Normal Non-Labored Blood Pressure 138/87 H Blood Pressure Mean 104 Pulse Ox 98 Oxygen Delivery Method Room Air PROC Procedures Upper Extremity Splints Upper Extremity Splint: Orthoglass (Well-padded) and Ulnar gutter (Long-arm) Splint Fabrication: Fabricated Location: Left MDM MDM MDM Narrative Medical decision making narrative: X-rays were obtained per protocol of the left ribs and of the left elbow in 3 views. I interpreted his x-rays and see no evidence of pneumothorax or rib fracture. However, my interpretation of his left elbow x-rays show anterior and posterior fat pad signs consistent with a radial head fracture. I reviewed the radiology report which shows nondisplaced, subtle lucency of the radial head along with the fat pad signs. I discussed patient with Dr. Frey with orthopedics. He would like the patient placed in a long-arm splint. He will be given a prescription for [place] for the next 3 days. He will continue ice and elevation at home, and follow-up with orthopedics next week. Disposition is discharged home in stable condition. Return instructions were reviewed. I do not feel that he requires laboratory work or observation. He was also given a sling for comfort but told to exercise his shoulder when possible. Radiography Diagnostic Testing: Clinical Impression(s) from Imaging Studies Ribs X-Ray 02/15/23 18:00 IMPRESSION: Normal x-ray examination of the ribs. Electronically Signed: Jaret Escobedo MD at 18:45 EDT , Elbow X-Ray 02/15/23 18:05 IMPRESSION: Radial head fracture. Joint effusion. Electronically Signed: Jaret Escobedo MD at 18:22 EDT , Discharge Plan Triage Chief Complaint: Fall ED Provider: Ron Delacruz Dx/Rx/DC Orders Clinical Impression: Fall, Closed fracture of radial head, Contusion of ribs Instructions: ED Chest Wall Contusion, ED Radial Head Fracture Prescriptions: New hydrocodone-acetaminophen 5-325 mg tablet 1 tab PO Q6H PRN (Reason: pain) 3 Days Qty: 12 0RF Primary Care Provider: Binh Nicholas Referrals: Binh Nicholas MD [Primary Care Provider] - Artie Frey MD [Med Staff - Active Staff] - 1 Week Activity Restrictions/Additional Instructions: Follow-up with Dr. Frey with orthopedics next week. Disposition Disposition: Home, Self Care
[2023-02-15] MEDS: HYDROcodone Bitartrate/Apap 5/325 Tablet PO (19:39)
[2023-02-15 20:39] VITALS: BP 136/91; PULSE 82; RESP 16; O2SAT 95
[2023-02-15 20:43] VITALS: BP 136/91; PULSE 81; RESP 16; O2SAT 95
== END 2023-02-15 20:49 | disposition home or self-care (01) ==
LOC: ED 19:39
PROVIDERS: Emergency Provider Emergency Medicine; PCP Internal Medicine; Visit Provider Emergency Medicine
DX: S52.122A Displaced fracture of head of left radius, initial encounter for closed fracture (principal); S20.219A Contusion of unspecified front wall of thorax, initial encounter; F17.210 Nicotine dependence, cigarettes, uncomplicated; W01.0XXA Fall on same level from slipping, tripping and stumbling without subsequent striking against object, initial encounter
CPT/HCPCS: 29405; 71100; 73080; 99283

== ENCOUNTER 2023-09-13 17:20 | Inpatient (IN) | payer OTHER, SELFPAY ==
[2023-09-13] VITALS (36 sets, daily range): BP systolic 101–161; BP diastolic 54–141; PULSE 89–111; RESP 11–25; TEMP 36.8–37.3; O2SAT 88–97; BMI 22.6; BMI 21.9
--- NOTE | 2023-09-13 18:37 | ED.VIS.DYS ---
HPI History of Present Illness Chief Complaint: Shortness of Breath Narrative Narrative: 52-year-old male presenting with shortness of breath. Patient states he started to feel sick starting on about 31 August. On the he went to the urgent care locally with shortness of breath and fever, chills, body aches. He states that they did not test him for any viral sources. They did not do a chest x-ray. They sent him home with methylprednisolone and Tessalon Perles. He states he still gets sweaty at night sometimes but has not had a kirsty fever. He does not get significantly short of breath with ambulation but does have a persistent cough with green sputum. His fevers have resolved. Patient is eating and drinking normally. He is making normal urine and stool. He went to the urgent care today where he had an x-ray done of his chest which showed multifocal groundglass opacities bilaterally. He was referred to the ER. [facility] Medical History History of intestinal obstruction History of pneumothorax Home Medications benzonatate 200 mg capsule 200 mg PO TID PRN cough #20 caps 09/06/23 [Rx Last Taken Unknown] Allergy/AdvReac Type Severity Reaction Status Date / Time azithromycin Allergy Mild Hives Verified 09/13/23 17:23 adhesive tape AdvReac Rash Verified 09/13/23 17:23 Family History Father Diabetes Heart disease Mother Multiple sclerosis Surgical History History of hernia repair History of intestinal surgery History of placement of chest tube S/P laparoscopy Social History Smoking Status: Current every day smoker tobacco type: cigarettes ROS ROS ED Constitutional Constitutional ED: Reports chills and fever(s); Denies sweats Eyes Eyes: Denies blurry vision or change in vision ENT ENT ED: Denies ear pain or sore throat Cardiovascular Cardiovascular: Denies chest pain, palpitations or racing heartbeat Respiratory/Chest Respiratory/Chest: Reports cough and dyspnea; Denies sputum Gastrointestinal Gastrointestinal: Denies abdominal pain, constipation, diarrhea, nausea or vomiting Genitourinary Genitourinary ED: Denies dysuria, hematuria or urinary frequency Musculoskeletal Musculoskeletal: Denies arthralgias, myalgias or neck pain Integumentary Denies abscess, Abrasions or rash Neurologic Neurologic: Denies headache(s), paresthesias or weakness Psychiatric Psychiatric: Denies anxiety, depression, suicidal ideation or suicidal thoughts Endocrine Endocrinology: Denies polydipsia or polyuria EXAM Physical Exam Const Vital Signs: 09/13/23 17:21 09/13/23 17:42 09/13/23 18:47 Temperature 98.2 F Temperature Source Temporal Pulse Rate 110 H 109 H Respiratory Rate 20 H 16 Respiratory Effort Short of Breath Respiratory Depth Normal Respiratory Pattern Normal Normal Blood Pressure 148/84 H Blood Pressure Mean 105 Pulse Ox 95 Oxygen Delivery Method Room Air Room Air 09/13/23 19:00 09/13/23 20:00 09/13/23 17:50 Temperature 99.1 F 98.9 F Temperature Source Oral Oral Pulse Rate 103 H 101 H 106 H Respiratory Rate 13 11 L 16 Respiratory Effort Respiratory Depth Respiratory Pattern Blood Pressure 125/87 H 116/66 Blood Pressure Mean 99 82 Pulse Ox 93 92 95 Oxygen Delivery Method Room Air Room Air 09/13/23 18:00 09/13/23 18:10 09/13/23 18:15 Temperature Temperature Source Pulse Rate 100 106 H 104 H Respiratory Rate 12 14 12 Respiratory Effort Respiratory Depth Respiratory Pattern Blood Pressure 161/141 H 104/73 Blood Pressure Mean 148 82 Pulse Ox 93 92 90 Oxygen Delivery Method 09/13/23 18:20 09/13/23 18:30 09/13/23 18:40 Temperature Temperature Source Pulse Rate 101 H 111 H 104 H Respiratory Rate 21 H 23 H 16 Respiratory Effort Respiratory Depth Respiratory Pattern Blood Pressure 119/84 H Blood Pressure Mean 96 Pulse Ox 92 88 93 Oxygen Delivery Method 09/13/23 18:45 09/13/23 18:50 09/13/23 19:00 Temperature Temperature Source Pulse Rate 101 H 99 103 H Respiratory Rate 16 21 H 13 Respiratory Effort Respiratory Depth Respiratory Pattern Blood Pressure 101/75 125/87 H Blood Pressure Mean 84 100 Pulse Ox 90 92 93 Oxygen Delivery Method Room Air 09/13/23 19:10 09/13/23 19:15 09/13/23 19:20 Temperature Temperature Source Pulse Rate 106 H 102 H 106 H Respiratory Rate 25 H 13 15 Respiratory Effort Respiratory Depth Respiratory Pattern Blood Pressure 135/76 H Blood Pressure Mean 88 Pulse Ox 97 92 93 Oxygen Delivery Method Room Air 09/13/23 19:30 09/13/23 19:40 09/13/23 19:45 Temperature Temperature Source Pulse Rate 98 100 Respiratory Rate 19 H 12 Respiratory Effort Respiratory Depth Respiratory Pattern Blood Pressure 122/72 H 110/57 L Blood Pressure Mean 87 72 Pulse Ox 91 93 Oxygen Delivery Method 09/13/23 19:50 09/13/23 20:00 09/13/23 20:10 Temperature 98.9 F Temperature Source Oral Pulse Rate 101 H 101 H 111 H Respiratory Rate 21 H 11 L 20 H Respiratory Effort Respiratory Depth Respiratory Pattern Blood Pressure 116/66 Blood Pressure Mean 80 Pulse Ox 94 92 92 Oxygen Delivery Method Room Air Positive well nourished General Appearance ED: NAD HEENT Reports moist mucous membranes atraumatic Eyes PERRL and EOMs intact bilaterally Neck no lymphadenopathy and supple Resp normal respiratory effort Auscultation: Negative for rales, rhonchi or wheezes Cardio regular rhythm Rate: tachycardic GI non-tender Neuro oriented x3 and CN's II-XII intact bilaterally Sensorium / Orientation: alert Motor Exam: strength 5/5 throughout Psych mental status grossly normal Skin No no wounds and No skin turgor normal MDM MDM MDM Narrative Medical decision making narrative: Patient presenting with shortness of breath, cough. Symptom onset was 31 August but has had persistent symptoms throughout. He was put on a prednisone burst as well as Tessalon Perles and is not improving. He states he went to urgent care today where they did a chest x-ray which showed multifocal Opacities/infiltrates and he was sent to the ER for evaluation. Patient tachycardic and tachypneic on arrival. He is well-appearing speaking full sentences. No tripoding and in no acute distress. Lungs clear to auscultation bilaterally. I personally had the patient ambulate in place next to the bed with pulse ox and dropped to 87% after about 15 seconds. Patient was not severely symptomatic he took him about 30 seconds to come back up to 90 to 93%. He was able to show me the interpretation of his x-ray from the urgent care. Given this I do not think we need to repeat a chest x-ray and his lungs are clear. Will obtain a CBC to assess white blood cell count, hemoglobin, platelets. BMP to assess renal function, electrolytes, glucose. High-sensitivity troponin EKG to assess for ischemia/dysrhythmia. Will give the patient 2 L of normal saline as I expect he is dehydrated. CBC shows white blood cell count of 21.6. Hemoglobin 13.1. Platelets are normal at 357. BMP shows normal renal function, electrolytes. Sodium 127. Potassium 3.7. High-sensitivity troponin is 7. EKG on my interpretation shows sinus tachycardia at a ventricular rate of 102 bpm without sign of ischemic change. Again I did not repeat a chest x-ray because he recently had 1. Since he is hypoxic and tachypneic and tachycardic I will rule out PE with a CTA. This was performed and it shows a 1.5 cm spiculated mass in the right upper lobe which is new. This is concerning for cancer. This also shows bilateral lower lobe pneumonitis/bronchiolitis. Discussed with hospitalist for admission who recommended IV doxycycline. Blood cultures were obtained as well as a lactic acid. He requested a viral respiratory panel and a COVID PCR as well. This was performed prior to admission. All pertinent findings were discussed with the patient and he admitted in stable condition. Impression: 1. Sepsis 2. Pneumonia 3. Right upper lobe mass 4. Leukocytosis 5. Hypoxic respiratory failure Lab Data Attestation: I reviewed the patient's lab results. Labs: Laboratory Results - last 24 hr 09/13/23 17:58 WBC 21.6 H RBC 4.39 L Hgb 13.1 Hct 38.0 L MCV 86.6 MCH 29.8 MCHC 34.5 RDW Std Deviation 42.7 RDW Coeff of Lalito 13.3 Plt Count 357 MPV 10.4 Immature Gran % (Auto) 1.600 H Neut % (Auto) 80.1 H Lymph % (Auto) 6.8 L [place] % (Auto) 10.9 H Eos % (Auto) 0.2 Baso % (Auto) 0.4 Absolute Neuts (auto) 17.3 H Absolute Lymphs (auto) 1.46 Nucleated RBC % 0 Differential Comment SCANNED Diff Path Review May foll Sodium 127 L Potassium 3.7 Chloride 93 L Carbon Dioxide 26.0 Anion Gap 8 BUN 10 Creatinine 0.70 Estim Creat Clear Calc 129.26 Est GFR (MDRD) Af Amer 151 Est GFR (MDRD) Non-Af 125 BUN/Creatinine Ratio 14.3 Glucose 122 H Calcium 9.2 Troponin I High Sens 7 Radiography Diagnostic Testing: Clinical Impression(s) from Imaging Studies Chest CTA 09/13/23 19:34 IMPRESSION: 1. No CT evidence of pulmonary embolism. 2. Mild emphysema with a 1.5 cm spiculated cavitary right upper lobe nodule worrisome for bronchogenic carcinoma correlation with PET CT scan is recommended. 3. Bilateral lower lung zone pneumonitis and bronchiolitis. Electronically Signed: Guanakito Rowland MD at 21:02 EST , Discharge Plan Triage Chief Complaint: Shortness of Breath ED Provider: Miguel A Galindo Dx/Rx/DC Orders Prescriptions: No Action benzonatate 200 mg capsule 200 mg PO TID PRN (Reason: cough) Qty: 20 0RF Primary Care Provider: Binh Nicholas Referrals: Binh Nicholas MD [Primary Care Provider] -
[2023-09-13] MEDS: Ipratropium/Albuterol Sulfate 3 ML AMPUL.NEB INHALATION (18:47)
[2023-09-13] MEDS: Albuterol 2.5 MG/3 ML VIAL.NEB. INHALATION (18:47)
[2023-09-13] MEDS: 0.9% Normal Saline (1000mL) 1,000 ML 1000 ML IV ×2 (18:57→20:03)
[2023-09-13 18:58] LABS: Absolute Lymphocyte Count 1.46 X10^3/uL (0.83-4.51); Absolute Neutrophil Count 17.3 X10^3/uL (2.0-7.7); Basophil# 0.09 X10^3/uL; Basophil% 0.4 % (0-1); Eosinophil# 0.05 X10^3/uL; Eosinophils% 0.2 % (0-5); Hemoglobin 13.1 g/dL (13.0-16.5); Lymphocyte # 1.46 X10^3/ul (0.83-4.51); Lymphocyte % 6.8 % (19-41); Mean Corp Hgb Conc 34.5 g/dL (32-36); Mean Corpuscular Hgb 29.8 pg (27.0-32.0); Mean Corpuscular Volume 86.6 fL (80-94); Mean Platelet Vol. 10.4 fl (6.2-12.0); Monocyte# 2.35 X10^3/uL; Monocyte% 10.9 % (0-10); NRBC Flagged by Analyzer 0 % (0-5); Neutrophil # 17.28 X10^3/uL (2.7-7.7); Neutrophil % 80.1 % (47-70); POSITIVE DIFFERENTIAL YES; Platelet Count 357 K/mm3 (150-450); RBC Distribution Width CV 13.3 % (11.6-14.6); RBC Distribution Width SD 42.7 fl (35.1-43.9); Red Blood Count 4.39 M/mm3 (4.6-6.2); White Blood Count 21.6 K/mm3 (4.4-11.0)
--- NOTE | 2023-09-13 19:01 | CPS ---
x1 Albuterol given to pt. in ER as well
[2023-09-13 19:09] LABS: Differential Indicated SCAN CRITERIA MET
[2023-09-13 19:17] LABS: Anion Gap 8 (5-15); BUN 10 mg/dL (7-18); BUN/Creat Ratio 14.3 RATIO (10-20); Calcium,Total 9.2 mg/dL (8.5-10.1); Chloride 93 mmol/L (98-107); EST Glomerular Filtration Rate 125 mL/min (>60); Est Glom Filt Rate - Afr Amer 151 mL/min (>60); Estimated Creatinine Clearance 129.26 ml/min; Glucose 122 mg/dL (74-106); Potassium 3.7 mmol/L (3.5-5.1); Sodium Level 127 mmol/L (136-145); Troponin-I HS 7 pg/mL (3.0-78.0)
[2023-09-13 19:25] LABS: Differential Comment SCANNED
--- NOTE | 2023-09-13 19:34 | CT_ITS ---
STUDY: CTA CHEST REASON FOR EXAM: Male, 52 years old. hypoxia RADIATION DOSAGE (If Supplied By Facility): CTDIvol = ( 5.79 ) mGy, DLP = ( 298.21 ) mGycm TECHNIQUE: The examination was performed with the intravenous administration of IV 100mL Isovue-370. Post-processing of the angiographic images was performed, with multiplanar reformation and 3D reconstruction. Individualized dose optimization techniques were used for this CT. COMPARISON: None. FINDINGS: Normal enhancement of the main pulmonary artery and right and left pulmonary arteries. Normal enhancement of the bilateral peripheral pulmonary arteries. There is no demonstrated pulmonary embolism. Normal thoracic aorta and visualized great vessels. There is no demonstrated aortic dissection. Normal heart and pericardium. Normal mediastinum. Normal hilar regions. Normal visualized trachea and bronchi. The lungs are well expanded. Mild emphysema. 1.5 cm spiculated cavitary noncalcified right upper lobe nodule on image 256 worrisome for bronchogenic carcinoma correlation with PET CT scan is recommended. Bilateral lower lobe ill-defined nodules consistent with pneumonitis and bronchiolitis. Normal pleura. Normal chest wall structures. Normal osseous structures. Normal visualized upper abdomen. CT/CTA Chest W/WO Contrast IMPRESSION: 1. No CT evidence of pulmonary embolism. 2. Mild emphysema with a 1.5 cm spiculated cavitary right upper lobe nodule worrisome for bronchogenic carcinoma correlation with PET CT scan is recommended. 3. Bilateral lower lung zone pneumonitis and bronchiolitis. Electronically Signed: Guanakito Rowland MD at 21:02 EST ,
--- NOTE | 2023-09-13 21:36 | PCM.HP.STD ---
HPI - General General Date of Admission: 09/13/23 Date of Service: 09/13/23 Chief Complaint: SOB and Cough. HPI Narrative PATRICIA RAMIREZ, is a 52 M with a past medical history of pneumothorax, history of small bowel obstruction; s/p laparoscopy with lysis of adhesions to omentum (2018) and history of acute bronchitis who presents to [facility] ER complaining of SOB and cough. Mr. Ramirez reports his symptoms began approximately two weeks prior to admission when he began to feel sick on 08/31/2023. He then went to the urgent are on 09/05/2023 with complaints of SOB, fever, chills and body aches. According to the records no CXR was checked at that time nor was a viral respiratory panel ordered at that time (because it has been ~6 days) - but he was eventually sent home with tessalon perles and a medrol dose pack. Unfortunately, he did not improve on this regimen so he decided to come to the ER today for further evaluation and treatment. He also admits to an associated cough productive of green sputum with unintentional weight loss and night sweats over the past few months but he denies related chest pain, palpitations, nausea or vomiting. In the ER his CT scan of the chest was positive for Multifocal Pneumonia with an ~1.5 cm RUL spiculated Mass suspicious for bronchogenic carcinoma in the setting of ongoing chronic tobacco abuse complicated by clinical evidence of early sepsis with leukocytosis of 21.6; with Left shift present on admission, tachycardia of 111 bpm present on admission with clinical evidence of acute hypoxic respiratory insufficiency compounded by laboratory evidence of Hyponatremia of 127 mmol/L present on admission and he was then admitted to the PCU for ongoing care under the Sepsis protocol for a stay that is expected to be greater than 48 hours. [facility] Medical History History of intestinal obstruction History of pneumothorax Home Medications benzonatate 200 mg capsule 200 mg PO TID PRN cough #20 caps 09/06/23 [Rx Last Taken Unknown] Allergy/AdvReac Type Severity Reaction Status Date / Time azithromycin Allergy Mild Hives Verified 09/13/23 17:23 adhesive tape AdvReac Rash Verified 09/13/23 17:23 Family History Father Diabetes Heart disease Mother Multiple sclerosis Surgical History History of hernia repair History of intestinal surgery History of placement of chest tube S/P laparoscopy Social History Smoking Status: Current every day smoker tobacco type: cigarettes ROS ROS Narrative Review of systems: Constitutional: Patient admits to fevers, chills and night sweats. Eyes: Patient denies visual changes or discharge from his eyes. ENT: Patient denies ear pain or sore throat. Cardiovascular: Patient denies chest pain or palpitations. Respiratory: Patient admits to cough and SIMPSON. Gastrointestinal: Patient denies abdominal pain, constipation, diarrhea, nausea or vomiting. Genitourinary: Patient denies dysuria, hematuria or urinary frequency. Musculoskeletal: Patient denies arthralgias, myalgias or neck pain. Integumentary: Patient denies abscess, abrasions or rash. Neurologic: Patient denies headache, paresthesias or focal neurologic weakness. Psychiatric: Patient denies depression or anxiety. Endocrine: Patient denies polyuria or polydipsia. Hematologic: Patient denies easy bleeding or easy bruisability. Allergic: Patient denies lip swelling, tongue swelling or urticaria. 14 point ROS otherwise negative except for positives noted above in HPI. Vital Signs Vital Signs Vital Signs: 09/13/23 17:21 09/13/23 17:42 09/13/23 18:47 Temperature 98.2 F Temperature Source Temporal Pulse Rate 110 H 109 H Respiratory Rate 20 H 16 Respiratory Effort Short of Breath Respiratory Depth Normal Respiratory Pattern Normal Normal Blood Pressure 148/84 H Blood Pressure Mean 105 Pulse Ox 95 Oxygen Delivery Method Room Air Room Air 09/13/23 19:00 09/13/23 20:00 09/13/23 17:50 Temperature 99.1 F 98.9 F Temperature Source Oral Oral Pulse Rate 103 H 101 H 106 H Respiratory Rate 13 11 L 16 Respiratory Effort Respiratory Depth Respiratory Pattern Blood Pressure 125/87 H 116/66 Blood Pressure Mean 99 82 Pulse Ox 93 92 95 Oxygen Delivery Method Room Air Room Air 09/13/23 18:00 09/13/23 18:10 09/13/23 18:15 Temperature Temperature Source Pulse Rate 100 106 H 104 H Respiratory Rate 12 14 12 Respiratory Effort Respiratory Depth Respiratory Pattern Blood Pressure 161/141 H 104/73 Blood Pressure Mean 148 82 Pulse Ox 93 92 90 Oxygen Delivery Method 09/13/23 18:20 09/13/23 18:30 09/13/23 18:40 Temperature Temperature Source Pulse Rate 101 H 111 H 104 H Respiratory Rate 21 H 23 H 16 Respiratory Effort Respiratory Depth Respiratory Pattern Blood Pressure 119/84 H Blood Pressure Mean 96 Pulse Ox 92 88 93 Oxygen Delivery Method 09/13/23 18:45 09/13/23 18:50 09/13/23 19:00 Temperature Temperature Source Pulse Rate 101 H 99 103 H Respiratory Rate 16 21 H 13 Respiratory Effort Respiratory Depth Respiratory Pattern Blood Pressure 101/75 125/87 H Blood Pressure Mean 84 100 Pulse Ox 90 92 93 Oxygen Delivery Method Room Air 09/13/23 19:10 09/13/23 19:15 09/13/23 19:20 Temperature Temperature Source Pulse Rate 106 H 102 H 106 H Respiratory Rate 25 H 13 15 Respiratory Effort Respiratory Depth Respiratory Pattern Blood Pressure 135/76 H Blood Pressure Mean 88 Pulse Ox 97 92 93 Oxygen Delivery Method Room Air 09/13/23 19:30 09/13/23 19:40 09/13/23 19:45 Temperature Temperature Source Pulse Rate 98 100 Respiratory Rate 19 H 12 Respiratory Effort Respiratory Depth Respiratory Pattern Blood Pressure 122/72 H 110/57 L Blood Pressure Mean 87 72 Pulse Ox 91 93 Oxygen Delivery Method 09/13/23 19:50 09/13/23 20:00 09/13/23 20:10 Temperature 98.9 F Temperature Source Oral Pulse Rate 101 H 101 H 111 H Respiratory Rate 21 H 11 L 20 H Respiratory Effort Respiratory Depth Respiratory Pattern Blood Pressure 116/66 Blood Pressure Mean 80 Pulse Ox 94 92 92 Oxygen Delivery Method Room Air Weight Weight: 167 lb Body Mass Index (BMI) 22.6 Physical Exam Const alert, oriented x3, no apparent distress, average body habitus and healthy appearing General Appearance: cooperative HEENT normocephalic, head/scalp atraumatic, hearing grossly normal bilaterally and moist oral mucous membranes Eyes PERRL and EOMs intact bilaterally Neck no lymphadenopathy and supple Resp Resp Narrative: Diminished breath sounds throughout with scattered rhonci. Auscultation: rhonchi Cardio regular rate and regular rhythm GI normal to inspection, nondistended, normoactive bowel sounds, soft to palpation, non-tender and non-distended Extremity normal to inspection and full ROM Skin Skin Narrative: Has no evidence of rash at this time. Neuro oriented x3, CN's II-XII intact bilaterally, moves all extremities and no focal motor deficits Sensorium / Orientation: awake, alert, oriented to person, oriented to place and oriented to time Speech: speech normal Motor Exam: strength 5/5 throughout Psych affect normal Results Medical Records Data Attestation: I reviewed the patient's medical records Lab / Micro Data Attestation: I reviewed the patient's lab results. 09/13/23 17:58 09/13/23 17:58 Labs: Laboratory Results - last 24 hr 09/13/23 17:58: WBC 21.6 H, RBC 4.39 L, Hgb 13.1, Hct 38.0 L, MCV 86.6, MCH 29.8, MCHC 34.5, RDW Std Deviation 42.7, RDW Coeff of Lalito 13.3, Plt Count 357, MPV 10.4, Immature Gran % (Auto) 1.600 H, Neut % (Auto) 80.1 H, Lymph % (Auto) 6.8 L, [place] % (Auto) 10.9 H, Eos % (Auto) 0.2, Baso % (Auto) 0.4, Absolute Neuts (auto) 17.3 H, Absolute Lymphs (auto) 1.46, Nucleated RBC % 0, Differential Comment SCANNED, Diff Path Review January, Sodium 127 L, Potassium 3.7, Chloride 93 L, Carbon Dioxide 26.0, Anion Gap 8, BUN 10, Creatinine 0.70, Estim Creat Clear Calc 129.26, Est GFR (MDRD) Af Amer 151, Est GFR (MDRD) Non-Af 125, BUN/Creatinine Ratio 14.3, Glucose 122 H, Calcium 9.2, Troponin I High Sens 7 Imagaing Radiology Impression Chest CTA 09/13/23 19:34 IMPRESSION: 1. No CT evidence of pulmonary embolism. 2. Mild emphysema with a 1.5 cm spiculated cavitary right upper lobe nodule worrisome for bronchogenic carcinoma correlation with PET CT scan is recommended. 3. Bilateral lower lung zone pneumonitis and bronchiolitis. Electronically Signed: Guanakito Rowland MD at 21:02 EST , Assessment & Plan Assessment/Plan (1) Sepsis: QUALIFIERS: Sepsis acute organ dysfunction status: with acute organ dysfunction Sepsis type: sepsis due to unspecified organism Severe sepsis acute organ dysfunction type: unspecified Severe sepsis shock status: without septic shock Qualified Code(s): A41.9 - Sepsis, unspecified organism; R65.20 - Severe sepsis without septic shock (2) Pneumonia: QUALIFIERS: Laterality: bilateral Lung location: unspecified part of lung Pneumonia type: due to unspecified organism Qualified Code(s): J18.9 - Pneumonia, unspecified organism (3) Lung mass: (4) Hyponatremia: PLAN: Plan 1. Multifocal Pneumonia with suspected Sepsis; evidenced by leukocytosis of 21.6 with Left shift present on admission, sinus tachycardia of 111 bpm present on admission and hypoxic respiratory insufficiency - Admit to ICU for treatment under the Sepsis protocol. Continue broad-spectrum antibiotics begun in the ER and await culture and sensitivity data. Wean supplemental oxygen as tolerated. 2. ~1.5 cm spiculated RUL Lung Mass in the setting of known chronic tobacco abuse complicating #1 - We will consult the press operator assistant on-call to see this patient on-rounds in the AM for further recommendations regarding possible bronchoscopy with biopsy with help appreciated in advance. Tobacco cessation will be strongly encouraged with Nicotine patch offered to control cravings. 3. Hyponatremia of 127 mmol/L present on admission compounding #1 & #2 - Give NS IVF and then recheck BMP in the AM to ensure improvement. There is also concern for potential underlying paraneoplastic SIADH arising from #2. Check serum osmolality and urine osmolality. 4. History of pneumothorax - Stable. 5. History of intestinal obstruction; s/p laparoscopy - Noted. 6. History of acute bronchitis - Noted. 7. DVT prophylaxis - Lovenox 40 mg sq daily. Total time: Approximately 55 minutes. Sepsis Attestation Sepsis Attestation: Sepsis Ruled Out Date exam was performed: 09/13/23 Time exam was performed: 23:20 Possible Source of Sepsis: Pulmonary Fluid Resuscitation Fluid resuscitation indicated?: Yes Fluid Resuscitation ordered: 30 ml/kg fluid bolus ordered Amount of fluid ordered: 3 Sepsis Note Date exam was performed: 09/14/23 Time exam was performed: 02:32 Sepsis Attestation: Sepsis re-evaluation was performed Response to fluids: Fluid responsive hypotension Charges/Coding Visit Charges Inpatient E&M: 94458 Init Hosp L2
--- OUTSIDE RECORDS SUMMARY | 2023-09-13 22:01 | XMS RPT_ITS | CCD ---
Author Name Unknown Address [address] [place] [address] Organization [facility] Care Team Providers Care Dress Designer Name Role Phone GEORGIE JACOBSON (MAREN) Unavailable Unavailable Encounters Encounter Date Encounter Type Care Provider Facility Start: 02-27-2017 End: 02-28-2017 Ambulatory GEORGIE (SPECIAL EDUCATION ADMINISTRATOR) INDIRA [facility] Summary Purpose Family History No Family History Records Found Advance Directives No Advanced Directives Records Found Additional Source Comments (unrecognized sect ion and content) No Status Records Found INFORMATION SOURCE (unrecogn ized section and content) FOR RECORDS PERTAINING TO PATIENTS WHO ARE OR HAVE BEEN ENROLLED IN A CHEMICAL DEPENDENCY/SUBSTANCEABUSE PROGRAM, SOME INFORMATION MAY BE OMITTED. This clinical summary was aggregated from multiple sources. Caution should be exercised in using it in the provision of clinical care. This summary normalizes information from multiple sources, and as a consequence, information in this document may materially change the coding, format and clinical context of patient data. In addition, data may be omitted in some cases. CLINICAL DECISIONS SHOULD BE BASED ON THE PRIMARY CLINICAL RECORDS. [employer] [facility]. provides no warranty or guarantee of the accuracy or completeness of information in this document.
--- OUTSIDE RECORDS SUMMARY | 2023-09-13 22:03 | XMS RPT_ITS | CCD ---
Author Name Unknown Address [address] [place] [address] Organization [facility] Care Team Providers Care Finisher [employer] Name Role Phone GEORGIE JACOBSON (MAREN) Unavailable Unavailable Encounters Encounter Date Encounter Type Care Provider Facility Start: 02-27-2017 End: 02-28-2017 Ambulatory GEORGIE (RECOVERY ENGINEER) INDIRA [facility] Summary Purpose Family History No Family [...] BE BASED ON THE PRIMARY CLINICAL RECORDS. [facility]. provides no warranty or guarantee of the accuracy or completeness of information in this document.
[2023-09-13] MEDS: Doxycycline 100 MG in Dextrose 5%-Water (250mL Bag) 250 ML 250 MG IV (22:18)
[2023-09-13 22:34] LABS: Lactic Acid 0.7 mmol/L (0.4-1.9)
--- NOTE | 2023-09-13 22:50 | RAD_ITS ---
STUDY: X-RAY CHEST REASON FOR EXAM: Male, 52 years old. PNA and RUL MASS TECHNIQUE: Single AP portable view of the chest. COMPARISON: CT earlier today FINDINGS: There is hyperinflation of the lungs consistent with chronic obstructive lung disease (COPD). 2 cm cavitary nodule right upper lobe lung may represent an infected bulla or bronchogenic carcinoma. Alveolar opacities in both lung bases consistent with bibasilar pneumonia. There is no demonstrated pleural abnormality. Normal size heart. Normal mediastinum and miley. Normal visualized pulmonary arteries. Normal visualized aortic arch and descending thoracic aorta. Normal visualized thoracic spine. Normal visualized ribs, clavicles, and shoulders. There is no demonstrated abnormality of the visualized soft tissue structures of the upper abdomen. RAD/Chest 1 View (Portable) IMPRESSION: 1. Emphysema with bibasilar pneumonia. 2. 2 cm cavitary right upper lobe nodule as seen on CT. Electronically Signed: Guanakito Rowland MD at 23:42 EST ,
[2023-09-13] MEDS: Lactated Ringers 1,000 ML 999 ML IV (23:43)
[2023-09-13] MEDS: Vancomycin HCl 1,750 MG in 0.9% Normal Saline (500mL Bag) 500 ML 250 MG IV (23:45)
[2023-09-13 23:59] LABS: Lactic Acid 0.9 mmol/L (0.4-1.9)
[2023-09-14] VITALS (8 sets, daily range): BP systolic 96–114; BP diastolic 55–73; PULSE 73–101; RESP 14–20; TEMP 36.3–36.9; O2SAT 91–96
[2023-09-14 00:26] LABS: Osmolality, Serum 263 mOsm/KG (275-295)
[2023-09-14 00:38] LABS: Osmolality, Urine 490 mOsm/KG
[2023-09-14] MEDS: Piperacil/Tazobactam 3.375 GM in 0.9% Normal Saline (50mL MB+) 50 ML IV (00:39)
[2023-09-14] MEDS: Lactated Ringers 1,000 ML 999 ML IV ×2 (00:45→01:50)
--- NOTE | 2023-09-14 01:18 | PCM.RX.CS ---
Consult Antibiotic Management Pharmacy has been consulted to manage selected antibiotic: Vancomycin Type of Intervention Type of Consult: New start Labs Labs: Sodium 127 mmol/L (136-145) L 09/13/23 17:58 Potassium 3.7 mmol/L (3.5-5.1) 09/13/23 17:58 Chloride 93 mmol/L (98-107) L 09/13/23 17:58 Carbon Dioxide 26.0 mmol/L (21.0-32.0) 09/13/23 17:58 Anion Gap 8 (5-15) 09/13/23 17:58 BUN 10 mg/dL (7-18) 09/13/23 17:58 Creatinine 0.70 mg/dL (0.70-1.30) 09/13/23 17:58 Est GFR (MDRD) Af Amer 151 mL/min (>60) 09/13/23 17:58 Est GFR (MDRD) Non-Af 125 mL/min (>60) 09/13/23 17:58 BUN/Creatinine Ratio 14.3 RATIO (10-20) 09/13/23 17:58 Glucose 122 mg/dL (74-106) H 09/13/23 17:58 Microbiology Microbiology: Microbiology 09/13/23 21:53 Mucosa - Nasopharyngeal Respiratory Panel (PCR) - Final 09/14/23 00:10 Urine, Clean Catch Legionella Antigen - Final 09/14/23 00:10 Urine, Clean Catch Streptococcus pneumoniae Antigen (M - Final 09/13/23 21:53 Mucosa - Nasopharyngeal Coronavirus COVID-19 PCR - Final Dosing Weight Weight used for dosin.5 kg Estimated Creatinine Clearance Estimated Creatinine Clearance: >120 Goal Trough Goal Trough: 15-20 mcg/mL Pharmacy Plan for Drug Dosing Pharmacy Plan for Drug Dosing: Pharmacy Service will continue to monitor and adjust dosing as required. Follow-Up Labs Follow-Up Labs: Trough: Vancomycin Date/Time Labs Ordered Labs to be done on [date and time ordered]: 09/14 @ [id number]
[2023-09-14] MEDS: guaiFENesin 1,200 MG Tablet 1200 MG PO ×2 (08:08→20:45)
[2023-09-14] MEDS: Cholecalciferol (Vit D3) 125 MCG CAPSULE (5,000 UNITS) PO (08:08)
[2023-09-14] MEDS: Zinc Sulfate 50 mg zinc (220 mg) ORAL capsule PO (08:08)
[2023-09-14] MEDS: Ascorbic Acid 500 MG Tablet 1000 MG PO (08:08)
[2023-09-14] MEDS: Vancomycin IV 1,000 MG/200 ML BAG 200 MG IV (08:09)
--- NOTE | 2023-09-14 09:14 | PN.HOSP_ITS ---
Reason for Visit Reason for Visit: Shortness of breath/Cough Subjective Subjective Patient is a 52-year-old male who presented to the emergency department at [facility] on 09/13/2023 complaining of shortness of breath and cough. He reported his symptoms began about 2 weeks prior to presentation when he began feeling sick on 08/31/2023. He went to urgent care on with complaints of shortness of breath, fever, chills, and myalgias. Does not appear the chest x-ray was performed nor were any viral respiratory assessment done because symptoms had been ongoing for greater than 6 days but he was eventually sent home with Tesmaxineon Perlaugusto and a Medrol Dosepak. Unfortunately he did not improve on this regimen so he came to the emergency department for further evaluation. He reported that his cough is associated with green sputum and has had unintentional weight loss and night sweats over the past few months. He denied any chest pain, palpitations, nausea, or vomiting. Vital signs on presentation showed a temperature of 98.2, heart rate was 110, respiratory was 20, oxygen saturations were 95% on room air and blood pressure was 148/84. CBC showed a markedly elevated white count at 21.6 with a left shift at 81.1%. His chemistry panel showed hyponatremia which is new for him with a sodium of 127, normal renal function, normal lactate and a troponin of 7. Chest x-ray was consistent with emphysema and bibasilar pneumonia as well as a 2 cm cavitary lesion in the right upper lobe. CTA of the chest showed no evidence of pulmonary embolism, mild emphysematous changes with a 1.5 spiculated cavitary lesion in the right upper lobe and bilateral lower lung zone pneumonitis and bronchiolitis. COVID testing was unremarkable. His respiratory viral panel is pending blood and sputum cultures were sent. Strep pneumo and Legionella antigens are unremarkable. He remained stable on room air. He was admitted to the PCU and placed on vancomycin and Zosyn for suspected pneumonia and pulmonary medicine was consulted. Patient states overall he is feeling much better today. We did discuss the finding in his right upper chest with regards to pulmonary medicine follow-up after discharge and after his treatment has been completed for his pneumonia. He voiced understanding and indicated that he was fine to follow-up whenever except he could between September 28 and October 02 as he would be out of town visiting his son in the . I told him that should be a problem and we would set up an appointment for him prior to discharge. Objective Data Objective Data Vital Signs: Vital Signs Temp Pulse Resp BP Pulse Ox O2 Del Method 97.9 F 78 18 96/55 L 91 Room Air 09/14/23 08:03 09/14/23 08:03 09/14/23 08:03 09/14/23 08:03 09/14/23 08:03 09/14/23 08:03 Oxygen Delivery Method Room Air Weight: 73.567 kg Body Mass Index (BMI) 21.9 Intake & Output: Intake and Output for Last 24 Hours 09/12/23 09/13/23 09/14/23 23:59 23:59 23:59 Intake Total 2260 / 2260 3285 / 3285 Balance 2260 / 2260 3285 / 3285 Lab / Micro Data 09/14/23 10:10 09/14/23 10:10 Labs: Laboratory Results - last 24 hr 09/13/23 17:58: WBC 21.6 H, RBC 4.39 L, Hgb 13.1, Hct 38.0 L, MCV 86.6, MCH 29.8, MCHC 34.5, RDW Std Deviation 42.7, RDW Coeff of Lalito 13.3, Plt Count 357, MPV 10.4, Immature Gran % (Auto) 1.600 H, Neut % (Auto) 80.1 H, Lymph % (Auto) 6.8 L, [place] % (Auto) 10.9 H, Eos % (Auto) 0.2, Baso % (Auto) 0.4, Absolute Neuts (auto) 17.3 H, Absolute Lymphs (auto) 1.46, Nucleated RBC % 0, Differential Comment SCANNED, Diff Path Review January, Sodium 127 L, Potassium 3.7, Chloride 93 L, Carbon Dioxide 26.0, Anion Gap 8, BUN 10, Creatinine 0.70, Estim Creat Clear Calc 129.26, Est GFR (MDRD) Af Amer 151, Est GFR (MDRD) Non-Af 125, BUN/Creatinine Ratio 14.3, Glucose 122 H, Calcium 9.2, Troponin I High Sens 7 09/13/23 21:50: Lactic Acid 0.7 09/13/23 23:26: Serum Osmolality 263 L, Lactic Acid 0.9 09/14/23 00:10: Urine Osmolality 490 Micro: Microbiology 09/13/23 21:53 Mucosa - Nasopharyngeal Respiratory Panel (PCR) - Final 09/14/23 00:10 Urine, Clean Catch Legionella Antigen - Final 09/14/23 00:10 Urine, Clean Catch Streptococcus pneumoniae Antigen (M - Final 09/13/23 21:53 Mucosa - Nasopharyngeal Coronavirus COVID-19 PCR - Final Radiography Diagnostic Testing: Radiology Impression Chest CTA 09/13/23 19:34 IMPRESSION: 1. No CT evidence of pulmonary embolism. 2. Mild emphysema with a 1.5 cm spiculated cavitary right upper lobe nodule worrisome for bronchogenic carcinoma correlation with PET CT scan is recommended. 3. Bilateral lower lung zone pneumonitis and bronchiolitis. Electronically Signed: Guanakito Rowland MD at 21:02 EST Reading Location ID and State: [employer] / [employer] Tel , Service support , Chest X-Ray 09/13/23 22:50 IMPRESSION: 1. Emphysema with bibasilar pneumonia. 2. 2 cm cavitary right upper lobe nodule as seen on CT. Electronically Signed: Guanakito Rowland MD at 23:42 EST Reading Location ID and State: [id number] / [employer] , Service support , Physical Exam Const alert, oriented x3, no apparent distress, average body habitus and well nourished Constitutional Narrative: Very pleasant, middle-aged, white male, sitting up in bed, appears comfortable and nontoxic HEENT head/scalp atraumatic and moist oral mucous membranes HEENT Narrative: Mallampati 2, no thrush Head and Scalp: normocephalic Resp normal respiratory effort, no retractions, no use of accessory muscles and No clear to auscultation bilaterally Resp Narrative: Diffusely diminished with crackles at bases bilaterally diminishment is greater at the apices than the bases Auscultation: crackles; Negative for rhonchi or wheezes Cardio regular rate, regular rhythm, S1 normal heart sound, S2 normal heart sound, no murmurs, no rub, no gallops and no clicks GI normal to inspection, nondistended, normoactive bowel sounds, soft to palpation and non-tender Extremity no clubbing, cyanosis or edema Extremity Narrative: Pedal pulse is are 2+ Neuro oriented x3, moves all extremities and no focal motor deficits Speech: speech normal Psych affect normal Psych Narrative: Very pleasant, eye contact is good Assessment & Plan Assessment/Plan (1) Hypokalemia: (2) Hypophosphatemia: PLAN: Plan Bibasilar pneumonia -Patient does not meet criteria for sepsis -Cultures are pending--> sputum and blood -Vancomycin was discontinued and patient was transition to Levaquin -Prednisone orally was added by pulmonary medicine -Pneumo and Legionella antigens are negative -COVID and flu are negative -Respiratory viral panel is pending -Continue Mucinex 1200 twice daily -Start aggressive pulmonary toilet with scheduled DuoNebs and as needed albuterol -Add incentive spirometry and Acapella -Continue Tessalon Perles -Will check ambulatory pulse ox in a.m. 1.5 cm right upper lobe lung mass -Unclear if this is abscess or malignancy -Pulmonary medicine was consulted -Discussed case with Dr. 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 potassium and recheck in a.m. Hypophosphatemia -21 mmol of IV Phos -Recheck in a.m. History of pneumothorax -No signs of recurrence -This was spontaneous Suspected COPD -Patient will get outpatient pulmonary medicine follow-up and have outpatient PFTs History of intestinal obstruction -Status post laparoscopy -No acute issues History of bronchitis -Treatment as noted above Tobacco abuse -Recommend cessation -Nicotine patch available DVT prophylaxis -Lovenox subcu daily CODE STATUS -Unclear -Will discuss with patient Charges/Coding Visit Charges Inpatient E&M: 73483 Subs Hosp L2
[2023-09-14 10:27] LABS: Absolute Lymphocyte Count 1.11 X10^3/uL (0.83-4.51); Absolute Neutrophil Count 15.7 X10^3/uL (2.0-7.7); Basophil# 0.08 X10^3/uL; Basophil% 0.4 % (0-1); Eosinophil# 0.16 X10^3/uL; Eosinophils% 0.8 % (0-5); Hematocrit 35.4 % (40-54); Lymphocyte # 1.11 X10^3/ul (0.83-4.51); Lymphocyte % 5.9 % (19-41); Mean Corp Hgb Conc 33.9 g/dL (32-36); Mean Corpuscular Hgb 29.7 pg (27.0-32.0); Mean Corpuscular Volume 87.6 fL (80-94); Mean Platelet Vol. 9.7 fl (6.2-12.0); Monocyte% 8.5 % (0-10); NRBC Flagged by Analyzer 0 % (0-5); Neutrophil # 15.66 X10^3/uL (2.7-7.7); Neutrophil % 82.8 % (47-70); POSITIVE DIFFERENTIAL YES; Platelet Count 332 K/mm3 (150-450); RBC Distribution Width CV 13.5 % (11.6-14.6); RBC Distribution Width SD 43.7 fl (35.1-43.9); Red Blood Count 4.04 M/mm3 (4.6-6.2); White Blood Count 18.9 K/mm3 (4.4-11.0)
[2023-09-14 10:30] LABS: Differential Indicated SCAN CRITERIA MET
[2023-09-14 10:54] LABS: ALB/GLOB Ratio 0.6 RATIO (0.9-2.4); AST(SGOT) 19 U/L (15-37); Alanine Aminotransfer ALT/SGPT 24 U/L (16-61); Albumin, Serum 2.3 g/dL (3.2-5.0); Alkaline Phosphatase 99 U/L (45-117); Anion Gap 6 (5-15); BUN 4 mg/dL (7-18); BUN/Creat Ratio 5.8 RATIO (10-20); Calcium,Total 8.5 mg/dL (8.5-10.1); Chloride 99 mmol/L (98-107); Creatinine, Serum 0.69 mg/dL (0.70-1.30); EST Glomerular Filtration Rate 127 mL/min (>60); Est Glom Filt Rate - Afr Amer 154 mL/min (>60); Estimated Creatinine Clearance 127.35 ml/min; Glucose 129 mg/dL (74-106); Phosphorus 2.1 mg/dL (2.5-4.9); Potassium 3.4 mmol/L (3.5-5.1); Protein, Total 6.3 g/dL (6.4-8.2); Sodium Level 131 mmol/L (136-145); Thyroid Stim Hormone (TSH) 0.62 uIU/mL (0.358-3.74)
[2023-09-14] MEDS: Ipratropium/Albuterol Sulfate 3 ML AMPUL.NEB INHALATION ×2 (11:13→14:49)
[2023-09-14 11:17] LABS: Differential Comment SCANNED
--- NOTE | 2023-09-14 11:35 | CASEMGMT ---
RN CM Face to Face with patient for initial transition planning/care coordination assessment. RN CM introduced self and role at [facility]. Patient lying in bed, alert and oriented, and son at beside. Patient willing to participate in assessment and is able to answer all questions appropriately. Care providers, pharmacy, and demographics verified. Patient wishes to discharge home, will monitor for needs at discharge. Patient states he has no further needs or concerns at this time. CM to follow for discharge planning needs that may arise. PCP: Cristopher, but hasn't seen in a long time, CM to provide PCP list Specialists: none Preferred Pharmacy: [facility] Retail Insurance: [facility] [employer] Prescription Benefit: yes Living Will/HPOA: none LNOK: , son Living Arrangements: Patient lives with in a single story home with 3 steps to enter the home. Patient is independent at home. Transportation: self, DME/HHC: Patient denies DME or previosu HHC or SNF. Patient states he smoke 1.5 PPD of cigarettes and smoke marijuana daily. Disposition Plan: Patient to discharge home with family support and follow-up plans in place. Gail JALLOH, RN, CM
--- NOTE | 2023-09-14 12:39 | CON.PCM.CC_ITS ---
Assessment & Plan Assessment/Plan (1) Pneumonia: QUALIFIERS: Pneumonia type: due to unspecified organism Laterality: bilateral Lung location: unspecified part of lung Qualified Code(s): J18.9 - Pneumonia, unspecified organism (2) Lung mass: (3) Syndrome of inappropriate ADH (SIADH) secretion: PLAN: Plan RECOMMENDATIONS: 1. Discontinue vancomycin 2. Add Levaquin and p.o. steroids. Agree with mucolytic 3. Obtain walking oximetry in a.m. 4. Repeat CT scan in 6 to 8 weeks 5. Encourage smoking cessation IMPRESSIONS: 1. Probable COPD exacerbation secondary to bilateral pneumonia Patient with delayed presentation, but does have tree-in-bud and atypical appearance of lower lobes bilaterally. Patient does have a significant leukocytosis, so we will place patient on steroids and Levaquin. Patient appears to be improving, so doubt the need for vancomycin. Will continue with mucolytic. Patient does have mediastinal lymphadenopathy, so it is unclear if this would be related to the right upper lobe nodule versus acute infectious etiology. Patient will likely require a repeat CT scan in 6 to 8 weeks. Patient also will require complete pulmonary function test as an outpatient. Patient should have a walking oximetry prior to discharge. Discussed with the patient frankly about the importance of smoking cessation moving forward. 2. Possible lung mass versus abscess Personal review of the CT scan does show emphysematous changes of bilateral upper lobes. On the right upper lobe there is a significant mass. There does appear to be an air-fluid level. Unclear if this is related to a pulmonary abscess versus necrotic changes. If this were to persist, patient would require a biopsy. Patient does have some findings of SIADH, so paraneoplastic SIADH cannot be excluded. Patient will likely require a CT- guided biopsy as mediastinal lymph nodes may be enlarged secondary to acute infectious etiology. PET scan would not be helpful in this situation as the differential includes malignancy and infection 3. 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 Patient should have fluid restriction with slow improvement. Defer to hospitalist. HPI Consult Data Date of Consult: 09/14/23 HPI Narrative HPI Narrative: PATRICIA RAMIREZ is a 52 M, with past medical history listed below, who presents to [facility] on 09/13/2023 secondary to progressive shortness of breath. Patient states symptoms started approximately August 31, 2023 and he went to the urgent care on the complaining of fever, chills and bodyaches. Patient reportedly did not have any testing completed and he was sent home on Tessalon Perles and steroids. Patient continued to have episodes of subjective chills, but felt that his cough persisted with green sputum. Patient states his subjective fevers have resolved and he is starting to eat and drink normally, but an x-ray done in urgent care center and showed multifocal groundglass opacities and so he was referred to the ER for further evaluation. In the ER, patient was afebrile, but tachycardic at 110 bpm. Patient was normotensive and tolerating room air well. Laboratory data showed a white blood cell count of 21.6, hemoglobin of 13.1 and platelets of 357. Chemistry showed an elevated bicarbonate of 26 creatinine of 0.7 and a glucose of 122. A CT of the chest was obtained secondary to tachycardia and dyspnea and showed no PE. However, patient did have emphysematous changes with a 1.5 spiculated right upper lobe cavitary lesion and mediastinal lymphadenopathy. Patient also had bilateral lower lobe infiltrates and tree-in-bud pattern. Patient was placed on IV doxycycline and had a viral panel that was negative. Patient was admitted to the hospital for further evaluation. Since being in the hospital, patient has remained on room air. Patient does report some mild hemoptysis with smearing of blood in his sputum. Patient does report dyspnea on exertion, but is relatively comfortable at rest. Patient is concerned as he was told overnight that he probably has cancer and had several questions pertaining to this suggestion. 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 Patient did start smoking at approximately the age of 16. Patient estimates that he smokes approximately a pack a day. Patient does occasionally experiment with marijuana, but denies any IV drugs. Patient has not had a pulmonary function test that he is aware of, but does report that in his 20s he presented to the ER at [facility] secondary to chest pain and was found to have a spontaneous pneumothorax. Patient had a chest tube placed on the right with resolution. Patient is not currently reporting any unintentional weight loss. Patient does report some weight loss associated with his acute infection, but recently has not had any weight loss. Patient is not reporting any current chest pain, nausea or vomiting. Patient does admit that he does not tend to follow with physicians routinely. Patient is not reporting any dysuria or sore joints. Patient has not required supplemental oxygen previously. Patient does not take any inhalers on a routine basis. Review of systems otherwise negative from a constitutional, HEENT, respiratory, cardiovascular, GI, genitourinary, musculoskeletal, skin, neurologic, psychiatric and hematologic system unless stated above. [facility] Medical History History of intestinal obstruction History of pneumothorax Home Medications benzonatate 200 mg capsule 200 mg PO TID PRN cough #20 caps 09/06/23 [Rx Last Taken Unknown] Allergy/AdvReac Type Severity Reaction Status Date / Time azithromycin Allergy Mild Hives Verified 09/13/23 17:23 adhesive tape AdvReac Rash Verified 09/13/23 17:23 Family History Father Diabetes Heart disease Mother Multiple sclerosis Surgical History History of hernia repair History of intestinal surgery History of placement of chest tube S/P laparoscopy Social History Smoking Status: Current every day smoker tobacco type: cigarettes ROS ROS Narrative See HPI Physical Exam Const alert, oriented x3, no apparent distress and average body habitus Constitutional Narrative: Appears older than stated age General Appearance: cooperative HEENT normocephalic, head/scalp atraumatic, hearing grossly normal bilaterally and moist oral mucous membranes Eyes PERRL, EOMs intact bilaterally and conjunctivae normal Neck no lymphadenopathy and supple Resp Auscultation: rhonchi and diminished lung sounds; Negative for rales or wheezes Cardio regular rate, regular rhythm, S1 normal heart sound, S2 normal heart sound, no murmurs, no rub and no gallops GI normal to inspection, nondistended, normoactive bowel sounds, soft to palpation, non-tender and non-distended Extremity normal to inspection and full ROM Skin no rashes or lesions noted Neuro oriented x3, CN's II-XII intact bilaterally, moves all extremities and no focal motor deficits Psych cooperative and affect normal Medical Records Data Attestation: I reviewed the patient's medical records Medical records narrative: No previous PFT or Echo available for review Lab / Micro Data Attestation: I reviewed the patient's lab results. 09/14/23 10:10 09/14/23 10:10 Labs: Laboratory Results - last 24 hr 09/13/23 17:58: WBC 21.6 H, RBC 4.39 L, Hgb 13.1, Hct 38.0 L, MCV 86.6, MCH 29.8, MCHC 34.5, RDW Std Deviation 42.7, RDW Coeff of Lalito 13.3, Plt Count 357, MPV 10.4, Immature Gran % (Auto) 1.600 H, Neut % (Auto) 80.1 H, Lymph % (Auto) 6.8 L, [place] % (Auto) 10.9 H, Eos % (Auto) 0.2, Baso % (Auto) 0.4, Absolute Neuts (auto) 17.3 H, Absolute Lymphs (auto) 1.46, Nucleated RBC % 0, Differential Comment SCANNED, Diff Path Review January foll, Sodium 127 L, Potassium 3.7, Chloride 93 L, Carbon Dioxide 26.0, Anion Gap 8, BUN 10, Creatinine 0.70, Estim Creat Clear Calc 129.26, Est GFR (MDRD) Af Amer 151, Est GFR (MDRD) Non-Af 125, BUN/Creatinine Ratio 14.3, Glucose 122 H, Calcium 9.2, Troponin I High Sens 7 09/13/23 21:50: Lactic Acid 0.7 09/13/23 23:26: Serum Osmolality 263 L, Lactic Acid 0.9 09/14/23 00:10: Urine Osmolality 490 09/14/23 10:10: WBC 18.9 H, RBC 4.04 L, Hgb 12.0 L, Hct 35.4 L, MCV 87.6, MCH 29.7, MCHC 33.9, RDW Std Deviation 43.7, RDW Coeff of Lalito 13.5, Plt Count 332, MPV 9.7, Immature Gran % (Auto) 1.600 H, Neut % (Auto) 82.8 H, Lymph % (Auto) 5.9 L, [place] % (Auto) 8.5, Eos % (Auto) 0.8, Baso % (Auto) 0.4, Absolute Neuts (auto) 15.7 H, Absolute Lymphs (auto) 1.11, Nucleated RBC % 0, Differential Comment SCANNED, Diff Path Review May foll, Sodium 131 L, Potassium 3.4 L, Chloride 99, Carbon Dioxide 26.0, Anion Gap 6, BUN 4 L, Creatinine 0.69 L, Estim Creat Clear Calc 127.35, Est GFR (MDRD) Af Amer 154, Est GFR (MDRD) Non-Af 127, BUN/Creatinine Ratio 5.8 L, Glucose 129 H, Calcium 8.5, Phosphorus 2.1 L, Magnesium 2.0, Total Bilirubin 0.70, AST 19, ALT 24, Alkaline Phosphatase 99, Total Protein 6.3 L, Albumin 2.3 L, Globulin 4.0, Albumin/Globulin Ratio 0.6 L, TSH 0.62 Micro: Microbiology 09/14/23 00:10 Sputum, Expectorated/Coughed Gram Stain - Final 09/13/23 21:53 Mucosa - Nasopharyngeal Respiratory Panel (PCR) - Final 09/14/23 00:10 Urine, Clean Catch Legionella Antigen - Final 09/14/23 00:10 Urine, Clean Catch Streptococcus pneumoniae Antigen (M - Final 09/13/23 21:53 Mucosa - Nasopharyngeal Coronavirus COVID-19 PCR - Final Imagaing Radiology Impression Chest CTA 09/13/23 19:34 IMPRESSION: 1. No CT evidence of pulmonary embolism. 2. Mild emphysema with a 1.5 cm spiculated cavitary right upper lobe nodule worrisome for bronchogenic carcinoma correlation with PET CT scan is recommended. 3. Bilateral lower lung zone pneumonitis and bronchiolitis. Electronically Signed: Guanakito Rowland MD at 21:02 EST Reading Location ID and State: [id number] / [employer] , Service support , Chest X-Ray 09/13/23 22:50 IMPRESSION: 1. Emphysema with bibasilar pneumonia. 2. 2 cm cavitary right upper lobe nodule as seen on CT. Electronically Signed: Guanakito Rowland MD at 23:42 EST , Charges/Coding Visit Charges Inpatient E&M: 65782 Init Hosp L2
[2023-09-14] MEDS: predniSONE 20 MG Tablet 40 MG PO (13:16)
[2023-09-14] MEDS: Sodium Phosphate/Na Biphos 21 MMOL in 0.9% Normal Saline (250mL Bag) 250 ML 84 MMOL IV (14:08)
[2023-09-14] MEDS: Potassium Chloride Oral Tablet 20 MEQ 40 MEQ PO (14:08)
[2023-09-14 23:50] LABS: Vancomycin, Trough Level 3.7 ug/mL (5.0-15.0)
[2023-09-15 02:45] VITALS: BP 118/72; PULSE 76; RESP 18; TEMP 36.6; O2SAT 95
[2023-09-15] MEDS: levoFLOXacin 750 MG Tablet PO (06:03)
[2023-09-15 07:16] LABS: Absolute Lymphocyte Count 1.86 X10^3/uL (0.83-4.51); Absolute Neutrophil Count 15.4 X10^3/uL (2.0-7.7); Basophil# 0.06 X10^3/uL; Basophil% 0.3 % (0-1); Eosinophil# 0.12 X10^3/uL; Eosinophils% 0.6 % (0-5); Hematocrit 35.5 % (40-54); Hemoglobin 11.9 g/dL (13.0-16.5); Lymphocyte # 1.86 X10^3/ul (0.83-4.51); Lymphocyte % 9.6 % (19-41); Mean Corp Hgb Conc 33.5 g/dL (32-36); Mean Corpuscular Hgb 29.7 pg (27.0-32.0); Mean Corpuscular Volume 88.5 fL (80-94); Mean Platelet Vol. 9.9 fl (6.2-12.0); Monocyte# 1.74 X10^3/uL; Monocyte% 8.9 % (0-10); NRBC Flagged by Analyzer 0 % (0-5); Neutrophil # 15.41 X10^3/uL (2.7-7.7); Neutrophil % 79.2 % (47-70); POSITIVE DIFFERENTIAL YES; Platelet Count 347 K/mm3 (150-450); RBC Distribution Width CV 13.4 % (11.6-14.6); RBC Distribution Width SD 43.7 fl (35.1-43.9); Red Blood Count 4.01 M/mm3 (4.6-6.2); White Blood Count 19.5 K/mm3 (4.4-11.0)
[2023-09-15 07:18] LABS: Differential Indicated SCAN CRITERIA MET
[2023-09-15 07:45] VITALS: PULSE 89; RESP 20; O2SAT 95
[2023-09-15] MEDS: Ipratropium/Albuterol Sulfate 3 ML AMPUL.NEB INHALATION ×2 (07:45→10:41)
[2023-09-15 08:13] LABS: Anion Gap 8 (5-15); BUN 5 mg/dL (7-18); BUN/Creat Ratio 10.2 RATIO (10-20); Calcium,Total 8.7 mg/dL (8.5-10.1); Chloride 99 mmol/L (98-107); Creatinine, Serum 0.49 mg/dL (0.70-1.30); EST Glomerular Filtration Rate 188 mL/min (>60); Est Glom Filt Rate - Afr Amer 228 mL/min (>60); Estimated Creatinine Clearance 179.33 ml/min; Glucose 106 mg/dL (74-106); Phosphorus 3.4 mg/dL (2.5-4.9); Potassium 3.7 mmol/L (3.5-5.1); Sodium Level 131 mmol/L (136-145)
[2023-09-15 09:08] VITALS: BP 117/78; PULSE 99; RESP 16; TEMP 36.3; O2SAT 93
[2023-09-15 09:12] VITALS: O2SAT 93
[2023-09-15 09:13] VITALS: O2SAT 87; O2SAT 89; O2SAT 93
[2023-09-15 10:24] LABS: Pathologist Review Reviewed
[2023-09-15] MEDS: predniSONE 20 MG Tablet 40 MG PO (10:43)
[2023-09-15] MEDS: Cholecalciferol (Vit D3) 125 MCG CAPSULE (5,000 UNITS) PO (10:43)
--- NOTE | 2023-09-15 12:21 | PCM.DC.SUM ---
Providers Date of Admission: 09/13/23 Date of Discharge: 09/15/23 Primary Care Physician: Dr. Binh Nicholas MD Consultations 09/13/23 22:42 Consult: [facility] / Pulmonary Medicine Routine Consulting Provider: [facility] [place] Reason for Consult: RUL MASS and Pneumonia with Sepsis. EMERGENT Consult: No MD Notified: Yes Date Notified: 09/14/23 Time Notified: 06:42 Method of Notification: Text Reason For Visit: SEPSIS, MULTIFOCAL PNEUMONIA AND RUL MASS Diagnosis Discharge Diagnosis (1) Hypokalemia: Status: Acute Code(s): E87.6 - Hypokalemia (2) Hypophosphatemia: Status: Acute Code(s): E83.39 - Other disorders of phosphorus metabolism Medications at Discharge Home Medications benzonatate 200 mg capsule 200 mg PO TID PRN cough #20 caps 09/06/23 ipratropium 20 mcg-albuterol 100 mcg/actuation mist for inhalation (Combivent Respimat) 1 puff inhalation Q6H PRN shortness of breath or wheezing #4 grams 09/15/23 levofloxacin 750 mg tablet 750 mg PO DAILY@0600 #6 tabs 09/15/23 prednisone 10 mg tablet 10 mg PO DAILY #30 tabs 09/15/23 Hospital Course Operations None Procedures EKG and - (Chest x-ray/CT chest) Summary of Care Provided Minutes Spent on Discharge: 38 Hospital Course: Mr. Knight is a 52-year-old male who presented to the emergency department at [facility] on 09/13/2023 complaining of shortness of breath and cough. He reported his symptoms began about 2 weeks prior to presentation when he began feeling sick on 08/31/2023. He went to urgent care on with complaints of shortness of breath, fever, chills, and myalgias. Does not appear the chest x-ray was performed nor were any viral respiratory assessment done because symptoms had been ongoing for greater than 6 days but he was eventually sent home with Jose Mayorga and a Medrol Dosepak. Unfortunately he did not improve on this regimen so he came to the emergency department for further evaluation. He reported that his cough is associated with green sputum and has had unintentional weight loss and night sweats over the past few months. He denied any chest pain, palpitations, nausea, or vomiting. Vital signs on presentation showed a temperature of 98.2, heart rate was 110, respiratory was 20, oxygen saturations were 95% on room air and blood pressure was 148/84. CBC showed a markedly elevated white count at 21.6 with a left shift at 81.1%. His chemistry panel showed hyponatremia which is new for him with a sodium of 127, normal renal function, normal lactate and a troponin of 7. Chest x-ray was consistent with emphysema and bibasilar pneumonia as well as a 2 cm cavitary lesion in the right upper lobe. CTA of the chest showed no evidence of pulmonary embolism, mild emphysematous changes with a 1.5 spiculated cavitary lesion in the right upper lobe and bilateral lower lung zone pneumonitis and bronchiolitis. COVID testing was unremarkable. His respiratory viral panel is pending blood and sputum cultures were sent. Strep pneumo and Legionella antigens are unremarkable. He remained stable on room air. He was admitted to the PCU and placed on vancomycin and Zosyn for suspected pneumonia and pulmonary medicine was consulted. His respiratory viral panel was unremarkable. Sputum culture was pending at the time of discharge however, Gram stain showed 1+ gram-negative rods. I will follow his cultures after discharge to ensure the organism is sensitive to Levaquin. His blood cultures were also pending and I will follow these as well. He was found to have hyponatremia at presentation with a sodium of 127. This is new. Sodium at the time of discharge was 130. It is suspected that this could potentially be related to his pneumonia or if this is malignancy SIADH from paraneoplastic syndrome. He was seen by pulmonary medicine and they recommended complete treatment of his infection with repeat CT scan in the next 6 to 8 weeks as there was concern that this may be more of an abscess formation then malignancy. A follow-up appointment was made to see Dr. Greene at the end of September on 10/05/2023. Clinically, he improved significantly within 48 hours of admission was anxious to go home. He never required any supplemental oxygen and was able to be sent home on room air after ambulatory pulse ox was assessed. We did send him home, as noted, with Levaquin to complete a 7-day course of antibiotics, prednisone taper, and I started him on a Combivent inhaler. Respiratory therapy instructed him on usage prior to discharge. Patient was able to be discharged home in stable condition on 09/15/2023. I have asked him to also follow-up with his primary care physician within the next 2 weeks. Discharge diagnoses: Bibasilar gram-negative pneumonia 1.5 cm right upper lobe lung mass Hyponatremia-stable Hypokalemia-resolved Hypophosphatemia-resolved History of spontaneous pneumothorax Suspected COPD History of intestinal obstruction History of bronchitis Tobacco abuse Physical Exam Const alert, oriented x3, no apparent distress, average body habitus, no limitations, healthy appearing and well nourished Constitutional Narrative: Very pleasant, middle-aged, white male, sitting up in bed, appears comfortable and nontoxic, at bedside General Appearance: cooperative, comfortable, well kempt and well developed Orientation / Consciousness: awake, oriented to person, oriented to place and oriented to time HEENT normocephalic, head/scalp atraumatic, hearing grossly normal bilaterally and moist oral mucous membranes HEENT Narrative: Mallampati is 2, no thrush Eyes PERRL, EOMs intact bilaterally and conjunctivae normal Eyes Narrative: No scleral icterus Neck no lymphadenopathy and supple Neck Narrative: Trachea midline, no thyroid enlargement Resp normal respiratory effort, no retractions, no use of accessory muscles and No clear to auscultation bilaterally Resp Narrative: Diffusely diminished few scattered crackles still at the bases bilaterally Auscultation: crackles; Negative for rhonchi or wheezes Cardio regular rate, regular rhythm, S1 normal heart sound, S2 normal heart sound, no murmurs, no rub, no gallops and no clicks GI normal to inspection, nondistended, normoactive bowel sounds, soft to palpation and non-tender Extremity normal to inspection, full ROM and no clubbing, cyanosis or edema Extremity Narrative: Pedal pulse is are 2+ Skin no rashes or lesions noted, no wounds, skin turgor normal and no jaundice Neuro oriented x3, CN's II-XII intact bilaterally, moves all extremities and no focal motor deficits Sensorium / Orientation: awake, alert, oriented to person, oriented to place and oriented to time Speech: speech normal Motor Exam: strength 5/5 throughout Psych affect normal Psych Narrative: Very pleasant, eye contact is good Weight / BMI Weight Weight: 73.567 kg Body Mass Index (BMI) 21.9 ABG / Lab / Microbiology Data 09/15/23 06:45 09/15/23 06:45 Laboratory: Laboratory Results - last 24 hr 09/13/23 17:58: Diff Path Review Reviewed 09/14/23 23:06: Vancomycin Trough 3.7 L 09/15/23 06:45: WBC 19.5 H, RBC 4.01 L, Hgb 11.9 L, Hct 35.5 L, MCV 88.5, MCH 29.7, MCHC 33.5, RDW Std Deviation 43.7, RDW Coeff of Lalito 13.4, Plt Count 347, MPV 9.9, Immature Gran % (Auto) 1.400 H, Neut % (Auto) 79.2 H, Lymph % (Auto) 9.6 L, Orange % (Auto) 8.9, Eos % (Auto) 0.6, Baso % (Auto) 0.3, Absolute Neuts (auto) 15.4 H, Absolute Lymphs (auto) 1.86, Nucleated RBC % 0, Differential Comment COMMENT, Diff Path Review January foll, Sodium 131 L, Potassium 3.7, Chloride 99, Carbon Dioxide 24.0, Anion Gap 8, BUN 5 L, Creatinine 0.49 L, Estim Creat Clear Calc 179.33, Est GFR (MDRD) Af Amer 228, Est GFR (MDRD) Non-Af 188, BUN/Creatinine Ratio 10.2, Glucose 106, Calcium 8.7, Phosphorus 3.4 Microbiology: Microbiology 09/14/23 00:10 Sputum, Expectorated/Coughed Gram Stain - Final 09/13/23 21:53 Mucosa - Nasopharyngeal Respiratory Panel (PCR) - Final 09/14/23 00:10 Urine, Clean Catch Legionella Antigen - Final 09/14/23 00:10 Urine, Clean Catch Streptococcus pneumoniae Antigen (M - Final 09/13/23 21:53 Mucosa - Nasopharyngeal Coronavirus COVID-19 PCR - Final D/C Instructions Discharge Diet: No restrictions Meaningful Use Info Meaningful Use Diagnoses (Choose all that apply): None applicable Discharge Plan Admission Admit Date/Time: 09/13/23 21:56 Primary Reason for Your Visit: Shortness of breath/cough Attending Provider: Ashia Welch Primary Care Provider: Binh Nicholas Consulting Providers: Rikki Cueva; Horacio Greene; Tay Gongora; Marie Mai; Prasanna Montoya; Emily José [employer] LOAN OFFICER Instructions Additional Instructions / Restrictions: 1. You were found to have a right upper lobe lung mass that is concerning for either cancer or infection. Dr. Greene from pulmonary medicine wanted to complete treatment of your antibiotics and repeat a CAT scan in the next 6 to 8 weeks. It is very important you follow-up with him as an outpatient as scheduled below 2. Please complete your antibiotics in their entirety Discharge Orders/Prescriptions Prescriptions: New levofloxacin 750 mg Tablet 750 mg PO DAILY@0600 Qty: 6 0RF prednisone 10 mg tablet 10 mg PO DAILY Qty: 30 0RF Rx Instructions: 4 tablets x 3 days, 3 tablets x 3 days, 2 tablets x 3 days, 1 tablet x 3 days Combivent Respimat 20-100 mcg/actuation mist 1 puff inhalation Q6H PRN (Reason: shortness of breath or wheezing) Qty: 4 0RF Continued benzonatate 200 mg capsule 200 mg PO TID PRN (Reason: cough) Qty: 20 0RF Referrals / Follow Up: Horacio Greene MD [Med Staff - Active Staff] - 10/05/23 7:45 am Binh Nicholas MD [Primary Care Provider] - Within 2 Weeks Disposition Disposition (needs filled in before D/C Order can be placed): Home, Self Care Charges/Coding Visit Charges Inpatient E&M: 89805 Disch Hosp >30min
[2023-09-15 14:00] VITALS: BP 119/76; PULSE 81; RESP 18; O2SAT 96
--- NOTE | 2023-09-15 14:00 | CASEMGMT ---
Patient discharging today. Patient required oxygen with ambulation at 2lpm. Prefers [employer]. Script received and referral sent to [facility] via [employer]. RN CM in to update patient and . PCP list provided to patient. Patient denied further needs or concerns at this time.
--- NOTE | 2023-09-15 15:20 | PHA.DC.MC.R ---
Pharmacy [facility] has performed discharge medication reconciliation and counseling for this patient. The patient's discharge medication list was reviewed for discrepancies and discrepancies were resolved. The patient was counseled on the following discharge medications and changes in medications for homegoing were reviewed. 1. LEVAQUIN 2. COMBIVENT 3. PREDNISONE The Reason for Use, instructions for use, and potential side effects were reviewed for all new medications. The patient's questions regarding all of their medications were answered. The patient was able to verbally demonstrate an understanding of their discharge medications. Medications at Discharge Home Medications benzonatate 200 mg capsule 200 mg PO TID PRN cough #20 caps 09/06/23 ipratropium 20 mcg-albuterol 100 mcg/actuation mist for inhalation (Combivent Respimat) 1 puff inhalation Q6H PRN shortness of breath or wheezing #4 grams 09/15/23 levofloxacin 750 mg tablet 750 mg PO DAILY@0600 #6 tabs 09/15/23 prednisone 10 mg tablet 10 mg PO DAILY #30 tabs 09/15/23
[2023-09-16 10:44] LABS: Pathologist Review Reviewed
[2023-09-19 09:30] LABS: Pathologist Review Reviewed
== END 2023-09-15 14:51 | disposition home or self-care (01) | DRG 178 ==
LOC: ED 18:14 → PCU 22:01
PROVIDERS: Admitting Provider Internal Medicine; Emergency Provider Student in an Organized Health Care Education/Training Program; PCP Internal Medicine; Visit Provider Internal Medicine
DX: J15.69 Pneumonia due to other Gram-negative bacteria (principal); E87.1 Hypo-osmolality and hyponatremia; J44.0 Chronic obstructive pulmonary disease with (acute) lower respiratory infection; E83.39 Other disorders of phosphorus metabolism; E87.6 Hypokalemia; F17.210 Nicotine dependence, cigarettes, uncomplicated; R91.8 Other nonspecific abnormal finding of lung field; R09.02 Hypoxemia; Z87.09 Personal history of other diseases of the respiratory system
CPT/HCPCS: 36415; 71045; 71275; 80048; 80053; 80202; 83605; 83735; 83930; 83935; 84100; 84443; 84484; 85025; 87040; 87070; 87077; 87205; 87449; 87633; 87635; 93005; 94640; 94668; 94762; 97802; 99284; 99406; J7030; J7040; J7050; J7120; Q9967; A4216

== ENCOUNTER → 2023-10-11 | Outpatient (CLI) | payer OTHER, SELFPAY ==
[2023-10-11 11:15] VITALS: PULSE 108; PULSE 109; PULSE 111; PULSE 82; PULSE 84; PULSE 89; PULSE 93; PULSE 94; O2SAT 98
--- OUTSIDE RECORDS SUMMARY | 2023-10-11 11:43 | XMS RPT_ITS | CCD ---
Author Name Unknown Address [address] [place] [address] Organization [facility] Care Team Providers Care Formal Waiter/Waitress Name Role Phone MARIA C RICARDO Referring Unavailable CHELA AGUIRRE Primary Care Unavailable CHELA AGUIRRE Primary Care Unavailable Problems Problem Classification Problem Date Documented Da te Episodic/Chronic Unclassified (1 source) Acute cough; Translations: [Acute cough] Onset: 09-13-2023 Results Test Name Value Interpretation Reference Range Facil ity Encounters Encounter Date Encounter Type Care Provider Facility Start: 09-13-2023 End: 09-13-2023 ambulatory CHELA AGUIRRE Facility:[facility] Progress note 09-13-2023 Note Date & Type Note Facility 09-13-2023 Note HNO ID: [id number] Author: Alva Roy RT(R) Service: Radiology Author Type: Technologist Type: Progress Notes Filed: 09/13/2023 4:56 PM Note Text: Radiology Service Progress Note PATIENT NAME: Oscar Ramirez DATE OF SERVICE: September 13, 2023 TIME: 4:49 PM PATIENT IDENTITY VERIFICATION COMPLETED USING TWO (2) IDENTIFIERS: Name and Date of confirmed by patient verbally. FALL SCREENING: Has the patient had 2 falls in the last year or 1 fall with injury or currently using an Ambulatory Assistive Device (Walker, Cane, Wheelchair, Crutches, etc.)? No PATIENT GENDER DATA: Male PATIENT RELEVANT IMPLANT DATA REVIEWED: Yes RADIOLOGY DEPARTMENT: General X-ray: Exam(s) Completed: Chest X-Ray PERIPHERAL IV DATA: Not applicable SIGNED BY: RT hCeko(R) September 13, 2023 4:49 PM [facility] Progress note 09-13-2023 Note Date & Type Note Facility 09-13-2023 Note HNO ID: [id number] Author: Maria C Ricardo APRN.NATIONAL SECRETARY Service: ? Author Type: Nurse Practitioner Type: Progress Notes Filed: 09/13/2023 5:10 PM Note Text: Subjective HPI Nontoxic-appearing male presents urgent care chief complaint cough. Duration of symptoms 1 month. Associated symptoms worsening productive cough. Has developed a fever the last few days. Has increased sputum production. Has not used any OTC medications. Denies any significant pain. States he is more fatigued. Risk factors smoking. Denies history of COPD. Denies any chest pain hemoptysis pleuritic pain nausea vomiting abdominal pain change in bowel or bladder habits. Past medical history prescription medication use allergies reviewed. .Patient presents with: Cough: Cough and congestion x 1 month History reviewed. No pertinent past medical history. History reviewed. No pertinent surgical history. ALLERGIES Patient has no known allergies. MEDICATIONS triamcinolone acetonide (KENALOG) 0.1 % cream Apply 1 application to affected area three times daily. Apply sparingly to area for rash/itching. (Patient not taking: Reported on 09/13/2023) History reviewed. No pertinent family history. Social History Tobacco Use Smoking status: Every Day BP 140/84 Pulse 118 Temp (!) 38.6 ?C (101.4 ?F) (Tympanic) Resp 22 Wt 75.8 kg (167 lb) SpO2 91% Review of Systems Constitutional: Positive for fever and malaise/fatigue. Negative for chills. HENT: Negative for congestion, ear discharge, ear pain, sinus pain and sore throat. Eyes: Negative for blurred vision, pain, discharge and redness. Respiratory: Positive for cough, sputum production and wheezing. Negative for hemoptysis, shortness of breath and stridor. Cardiovascular: Negative for chest pain. Gastrointestinal: Negative for abdominal pain, diarrhea, nausea and vomiting. Musculoskeletal: Positive for myalgias. Skin: Negative for itching and rash. Neurological: Negative for dizziness and headaches. Objective Physical Exam Constitutional: General: He is not in acute distress. Appearance: He is not diaphoretic. HENT: Head: Normocephalic. Jaw: No trismus, tenderness, swelling or pain on movement. Nose: Congestion present. Mouth/Throat: Mouth: Mucous membranes are moist. Pharynx: Oropharynx is clear. Uvula midline. No pharyngeal swelling, oropharyngeal exudate, posterior oropharyngeal erythema or uvula swelling. Eyes: Conjunctiva/sclera: Conjunctivae normal. Pupils: Pupils are equal, round, and reactive to light. Cardiovascular: Rate and Rhythm: Normal rate and regular rhythm. Heart sounds: Normal heart sounds. Pulmonary: Effort: Pulmonary effort is normal. No tachypnea, accessory muscle usage or respiratory distress. Breath sounds: No stridor. Wheezing present. No rhonchi or rales. Abdominal: General: There is no distension. Palpations: Abdomen is soft. Tenderness: There is no abdominal tenderness. There is no guarding or rebound. Musculoskeletal: Cervical back: Normal range of motion and neck supple. No edema, erythema, rigidity or tenderness. No pain with movement. Normal range of motion. Lymphadenopathy: Cervical: No cervical adenopathy. Skin: General: Skin is warm and dry. Neurological: Mental Status: He is alert and oriented to person, place, and time. ASSESSMENT/PLAN: 1. Acute cough - ICD9: 786.2, ICD10: R05.1 (primary diagnosis) - XR CHEST 2V FRONTAL/LAT 2. Bacterial pneumonia - ICD9: 482.9, ICD10: J15.9 IMPRESSION: Multifocal bilateral groundglass and patchy opacities suspicious for Pneumonia Diagnosed with pneumonia. With patient's vital signs I recommended patient be seen in ED for further evaluation care. Will be seen at [facility]. Maria C Ricardo APRN.[facility] Summary Purpose Family History No [...] BE BASED ON THE PRIMARY CLINICAL RECORDS. [employer] provides no warranty or guarantee of the accuracy or completeness of information in this document.
--- NOTE | 2023-10-11 14:17 | PCM.PSN.6M ---
PSN 6 Minute Walk Test 6 Minute Walk Test 6 Minute Walk Test: 6 Minute Walk Test PSN:6-Minute Walk Test Start: 10/11/23 11:44 Freq: Status: Active Protocol: RESP.6MINW Document 10/11/23 11:[address] [facility] (Rec: 10/11/23 11:[address] [facility] [id number]) 6 Minute Walk Test Date Performed 10/11/23 Time Performed 11:15 Height 6 ft Weight: 75.296 kg Weight in Pounds 166.[address]: Dr Carpio Assistive device used: None Pre-test Oxygen Delivery Method Room Air Pulse Ox 98 Pulse Rate (60-100) 84 Dyspnea Erica Scale (0-10) 0 Exertion Erica Scale (6-20) 6 1st minute Oxygen Delivery Method Room Air Pulse Ox 98 Pulse Rate (60-100) 82 2nd minute Oxygen Delivery Method Room Air Pulse Ox 98 Pulse Rate (60-100) 93 3rd minute Oxygen Delivery Method Room Air Pulse Ox 98 Pulse Rate (60-100) 109 H 4th minute Oxygen Delivery Method Room Air Pulse Ox 98 Pulse Rate (60-100) 94 5th minute Oxygen Delivery Method Room Air Pulse Ox 98 Pulse Rate (60-100) 111 H 6th minute Oxygen Delivery Method Room Air Pulse Ox 98 Pulse Rate (60-100) 108 H Dyspnea Erica Scale (0-10) 0 Exertion Erica Scale (6-20) 8 Post-test Oxygen Delivery Method Room Air Pulse Ox 98 Pulse Rate (60-100) 89 Full Laps Walked 17 Partial Lap, Number of Tiles Walked 18 Total Distance Walked (ft) 1021 Interpretation Interpretation: Patient was able to ambulate 1021 feet over the course of 6 minutes on room air with no assistive devices or breaks. The patient experienced no significant desaturation, but did have tachycardia as high as 111 bpm. These findings are consistent with deconditioning. Recommendations Recommendations: No supplemental oxygen is indicated at this time.
== END | disposition home or self-care (01) ==
LOC: PSN 11:22
PROVIDERS: PCP Nurse Practitioner Family; Referring Provider Internal Medicine Critical Care Medicine; Visit Provider Internal Medicine Critical Care Medicine
DX: R06.00 Dyspnea, unspecified (principal); R09.02 Hypoxemia
CPT/HCPCS: 94618

== ENCOUNTER → 2023-10-13 | Outpatient (CLI) | payer OTHER, SELFPAY ==
--- NOTE | 2023-10-13 13:43 | PFTCOMP_ITS ---
COMPLETE PULMONARY FUNCTION TEST INTERPRETATION Brief HPI: Patient is a 52-year-old male, currently under the care of myself, who presents to [facility] for complete pulmonary function tests secondary to diagnosis of dyspnea. Respiratory therapist reports good effort and reproducible results. Interpretation: Forced expiration spirometry shows a mild large airways obstructive ventilatory defect with an FEV1 of 81% predicted. There is a significant bronchodilator response in FEV1 by strict ATS criteria. Spirograms are of good quality and plateau slowly, indicating slowly emptying areas of the lungs. The respiratory flow volume loop shows decreased expiratory flow rates at all lung volumes consistent with airway obstruction. Lung volumes by body plethysmography show an elevated total lung capacity at 9.89 L, 131% predicted. FRC and RV are elevated out of proportion. Lung volume measurements are consistent with hyperinflation and air-trapping. Diffusion capacity by carbon monoxide is decreased at 62% predicted. The airway resistance is elevated. No previous pulmonary function tests were available for review. Impression: Partially reversible mild large airways obstructive ventilatory defect, resulting in air trapping with hyperinflation, and a disproportionate reduction in diffusion capacity, in a pattern consistent with COPD/asthma overlap syndrome
== END | disposition home or self-care (01) ==
LOC: PSN 10:12
PROVIDERS: PCP Nurse Practitioner Family; Referring Provider Internal Medicine Critical Care Medicine; Visit Provider Internal Medicine Critical Care Medicine
DX: R06.09 Other forms of dyspnea (principal)
CPT/HCPCS: 94060; 94726; 94729

== ENCOUNTER → 2023-12-23 | Outpatient (CLI) | payer OTHER, SELFPAY ==
--- NOTE | 2023-12-23 16:50 | CT_ITS ---
INDICATION: Follow up nodule EXAMINATION: CT CHEST WITHOUT CONTRAST - CT Chest W/O Contrast Injection TECHNIQUE: Helically acquired images were obtained of the chest. A radiation dose optimization technique was used for this scan. IV Contrast dosage and agent: None. Radiation Dose (provided by facility) CTDIvol (NA ) mGy, DLP ( NA) mGy-cm COMPARISON: 09/13/2023 FINDINGS: LUNGS, PLEURA AND LARGE AIRWAYS: 1. Lungs are hyperexpanded, emphysematous changes are present. No lobar consolidation. There has been resolution of the areas of alveolar infiltrate at the lung bases on prior exam. 2. There is a cavitary mass in the RIGHT upper lobe as previously noted back, with maximal dimension currently estimated at 1.8 x 1.3 cm which allowing for differences in projection is not undergone significant change in size however there is a eccentric soft tissue portion of this mass superiorly and laterally in position with spiculation and mild retraction of the pleural surface. 3. Additional area of pleural-parenchymal scar along the anterior aspect of the RIGHT upper lobe without significant change. THYROID: No thyroid lesions. HEART AND PERICARDIUM: Heart size is normal. No pericardial effusion. Coronary vascular calcifications are present. VESSELS: Thoracic aorta is not dilated. MEDIASTINUM AND KARIME: No mediastinal or hilar adenopathy. Esophagus is unremarkable. No hiatal hernia. UPPER ABDOMEN: Liver has normal configuration, small cyst is present in the RIGHT hepatic lobe, measuring approximately 4 mm. BONES: No suspicious lytic or blastic abnormality. CT/Chest without Contrast IMPRESSION: 1. RIGHT upper lobe cavitary mass with eccentric soft tissue and the spiculation. Maximal dimension currently estimated at 1.8 x 1.3 cm. No significant interval change, however configuration is a worrisome of neoplastic process. As noted previously, follow-up is recommended to include CT PET examination to assess for malignancy. 2. Extensive emphysematous change, and chronic pleural-parenchymal scar in the anterior aspect of the RIGHT upper lobe. 3. Interval clearance of the previous areas of extensive infiltrate at the lung bases. No current infiltrate noted. Electronically Signed: Guanakito Lakhani MD at 22:10 EDT ,
== END | disposition home or self-care (01) ==
LOC: CT 16:50
PROVIDERS: PCP Nurse Practitioner Family; Visit Provider Internal Medicine Critical Care Medicine
DX: R91.8 Other nonspecific abnormal finding of lung field (principal)
CPT/HCPCS: 71250

== ENCOUNTER 2024-01-24 09:17 | Outpatient (CLI) | payer OTHER, SELFPAY ==
--- NOTE | 2024-01-23 | ASPIGT_PTH ---
PATIENT: PATRICIA RAMIREZ LOC: CT U#:[id number] AGE/SX: 53/M ROOM: RE01/24/[address]: MARILYN Hansen : 1970 BED: DIS: 01/24/2024 SPEC #: [id number] RECD: 01/24/24 11:00 STATUS: ALPHONSO MONIQUE #: [id number] HARIKA: 01/23/24 00:[address]: Emily José NP DEPT: SURGICAL PATHOLOGY RECD BY: Dewey Purcell ENTERED: 01/24/24 11:00 SP TYPE: ASP RAD OTHR DR: MARILYN Cardenas Tissues: Lung, NOS Procedures: FNA Specimen Adequacy Gen Path Consultation (on slides) Special Stain Group II Surgery Specimen Level IV Imprint (control) HEADER OPERATION: CT guided right upper lobe lung biopsy PRE-OP DIAGNOSIS: Abnormal finding of lung field TISSUE SUBMITTED: 20-guage x5 MICROSCOPIC DIAGNOSIS Right upper lung mass, CT guided core biopsy: Fibrosis. Poorly formed granulomas and lymphoplasmacytic infiltration. No evidence of carcinoma. See comment. KINGSLEY/ 02/03/2024 COMMENT Immunohistochemistry ([id number]) supports the above diagnosis. Case has been reviewed in consultation with Dr. Kang who concurs with the above diagnosis. IDC:AM The specimen is evaluated at the time of biopsy by . Immediate Evaluation = Malignant cells present derived from non-small cell carcinoma. The specimen is evaluated at the time of biopsy by Dr. Kang. Immediate Evaluation = Negative for carcinoma. Only atypical cells present. The specimen is sent to [facility] for expert opinion, reviewed by Dr. Nuñez and the above diagnosis is rendered. The complete report is viewable in the patient's EMR. MICROSCOPIC DESCRIPTION Slides are reviewed. GROSS DESCRIPTION Received in fixative is one container labeled with the patient's name and designated CT guided lung biopsy. The specimen consists of multiple irregular fragments of purdy soft tissue that in aggregate measure 1.0 x 0.3 x 0.1 cm. The specimen is totally submitted in one cassette. Two touch imprints are prepared at the time of core biopsy.BRYSON/ 01/24/24 TC:3 CPT:60387,25420
[2024-01-24] VITALS (15 sets, daily range): BP systolic 83–163; BP diastolic 53–101; PULSE 57–70; RESP 10–19; TEMP 36.3; O2SAT 94–100; BMI 23.6
--- NOTE | 2024-01-24 | IMM_PTH ---
PATIENT: PATRICIA RAMIREZ LOC: CT U#:[id number] AGE/SX: 53/M ROOM: RE01/24/[address]: MARILYN Hansen : 1970 BED: DIS: 01/24/2024 SPEC #: [id number] RECD: 01/25/24 10:24 STATUS: ALPHONSO REQ #: [id number] HARIKA: 01/24/24 00:[address]: Emily José NP DEPT: IMMUNOHISTOCHEMISTRY RECD BY: Adilson Swift ENTERED: 01/25/24 10:25 SP TYPE: IMMUNO OTHR DR: MARILYN Cardenas Tissues: Lung, NOS Procedures: RCC (add) NAPSIN A (add) CK20 (add) CK5-6 (add) CK7 (add) CK8 (add) HEP PAR (add) TTF1 (add) Pankeratin (initial) P40 (add) PSAP (add) PHYSICIAN & INSTITUTION [address] [address] SPECIMEN INFORMATION: Tissue Source: Right lung, CT guided core biopsy Clinical Info: Specimen Number: [id number] CPT code: 16693,[id number] METHODOLOGY: Deparaffinized sections of prefer/formalin-fixed tissue or PAP/DQ stained slides are incubated with monoclonal/polyclonal antibodies/oligonucleotide probes. Localization is made via biotin free immunoperoxidase method. Appropriate controls are performed and reacted as expected. Results on target cell population are indicated in the following table: RESULTS: ANTIBODY / CLONE RESULT AE1-3 (AE1/AE3/PCK26) negative CK7 (OV-TL12/30) negative CK8 (14yqilI18) negative CK20 (KS20.8) negative TTF-1 (8G7G3/1) negative Napsin A (Rabbit Polyclonal) negative HepPar (OCh1E5) negative RCC (PN-15) negative PSAP (PASE/4LJ) negative CK5-6 (D5 & 1684) negative P40 (BC28) negative These tests were developed and their performance characteristics determined by [facility]. They may not have been cleared or approved by the U.[place]. Food and Drug Administration. The FDA has determined that such clearance or approval is not necessary. The above immunohistochemical/dualISH markers are ordered and reviewed by the Pathologist. INTERPRETATION: Right lung, CT guided core biopsy: Fibrosis. Granulomatous inflammation. No evidence of malignancy. AM/mr 02/03/2024 COMMENT: Case has been reviewed in consultation with Dr. Nicholas who concurs with the above diagnosis. IDC:SJ
[2024-01-24 09:46] LABS: Absolute Lymphocyte Count 1.72 X10^3/uL (0.83-4.51); Absolute Neutrophil Count 5.5 X10^3/uL (2.0-7.7); Basophil# 0.06 X10^3/uL; Basophil% 0.7 % (0-1); Eosinophil# 0.48 X10^3/uL; Eosinophils% 5.6 % (0-5); Hematocrit 46.6 % (40-54); Hemoglobin 15.6 g/dL (13.0-16.5); Lymphocyte # 1.72 X10^3/ul (0.83-4.51); Lymphocyte % 20.1 % (19-41); Mean Corp Hgb Conc 33.5 g/dL (32-36); Mean Corpuscular Hgb 29.6 pg (27.0-32.0); Mean Corpuscular Volume 88.4 fL (80-94); Mean Platelet Vol. 9.7 fl (6.2-12.0); Monocyte# 0.74 X10^3/uL; Monocyte% 8.6 % (0-10); NRBC Flagged by Analyzer 0 % (0-5); Neutrophil # 5.54 X10^3/uL (2.7-7.7); Neutrophil % 64.8 % (47-70); Platelet Count 271 K/mm3 (150-450); Red Blood Count 5.27 M/mm3 (4.6-6.2); White Blood Count 8.6 K/mm3 (4.4-11.0)
[2024-01-24 09:56] LABS: Prothrombin Time (Protime)PT. 13.3 SECONDS (11.7-14.9)
[2024-01-24 09:59] LABS: Partial Thromboplast Time 31.1 Seconds (24.1-36.2)
[2024-01-24] MEDS: 0.9% Saline Lock 10 ML Syringe IV (10:07)
[2024-01-24] MEDS: 0.9% Normal Saline (250mL Bag) 250 ML 15 ML IV (10:07)
[2024-01-24] MEDS: fentaNYL 100 MCG/2 ML Ampul IV ×2 (10:13→10:31)
[2024-01-24] MEDS: Midazolam 2 MG/2 ML Syringe IV (10:14)
[2024-01-24 10:28] LABS: AST(SGOT) 18 U/L (15-37); Alanine Aminotransfer ALT/SGPT 18 U/L (16-61); Albumin, Serum 3.8 g/dL (3.2-5.0); Alkaline Phosphatase 92 U/L (45-117); Anion Gap 3 (5-15); BUN 10 mg/dL (7-18); BUN/Creat Ratio 11.1 RATIO (10-20); Calcium,Total 9.1 mg/dL (8.5-10.1); Chloride 101 mmol/L (98-107); Cholesterol 245 mg/dL (200); EST Glomerular Filtration Rate 93 mL/min (>60); Est Glom Filt Rate - Afr Amer 113 mL/min (>60); Estimated Creatinine Clearance 101.79 ml/min; Globulin 3.7 g/dL (2.2-4.2); Glucose 98 mg/dL (74-106); High Density Lipoprotein 38 mg/dL; PSA,Total- Diagnostic 0.94 ng/mL (0.0-4.0); Potassium 4.4 mmol/L (3.5-5.1); Protein, Total 7.5 g/dL (6.4-8.2); Sodium Level 132 mmol/L (136-145); Triglycerides 133 mg/dL; Very Low Density Lipoprotein 27 mg/dL (5-40)
[2024-01-24] MEDS: Lidocaine 2% (20 ml mdv) 20 ML Vial INFILT (10:32)
--- NOTE | 2024-01-24 10:50 | RAD_ITS ---
STUDY: X-RAY CHEST REASON FOR EXAM: Male, 53 years old. Immediately post lung biopsy -- Immediately post lung biopsy TECHNIQUE: AP inspiration and expiration views. COMPARISON: Comparison is made with prior study dated generally 2023. FINDINGS: EKG electrodes are seen. The patient is status post right lung biopsy. No definite pneumothorax is seen. Two-hour follow-up examination will be obtained. RAD/Chest Insp/Exp 2 View IMPRESSION: No definite pneumothorax is seen on the immediate post right lung biopsy radiographs. Electronically Signed: Valeriano Martin MD at 11:00 EDT ,
--- NOTE | 2024-01-24 11:54 | PCM.OP.PRO ---
Procedure Report Date of Procedure: 01/24/24 Assessment & Plan Assessment/Plan (1) Lung mass: PLAN: PROCEDURE: CT GUIDED CORE NEEDLE LUNG BIOPSY ORDERING PROVIDER: Emily José CNP INDICATION: Male, 53 years old. Right upper lobe lung mass PROVIDER: MAJOR Vargas CONSENT: Written informed consent was obtained having explained the risks, benefits and alternatives in detail with the patient who accepted the risks and agreed to proceed. Laboratory review and clinical assessment was performed. PRE-PROCEDURE SEDATION ASSESSMENT: Current history and physical dictated by referring physician and reviewed. No clinical changes since date of exam. Patient has an Class of 2. PROCEDURAL SEDATION PROTOCOL: The Drugs used were: 2 mg Versed, IV, and 100 mcg Fentanyl, IV. The sedation time was: 26 minutes, starting at 1014 and terminated at 1040. The procedural sedation protocol was independently monitored by the department nurse. RADIATION DOSAGE (If Supplied By Facility): CTDIvol = 21.48 mGy, DLP = 268.90 mGycm Individualized dose optimization techniques were used for this CT. TECHNIQUE: The patient was placed in a prone position. A noncontrast CT was performed to localize the lesion in the right upper lobe. The skin surface was prepped and draped in a sterile fashion. 2% lidocaine was used for local anesthesia. Using CT guidance, a 20-gauge coaxial biopsy device was advanced to the periphery of the lesion. A total of 5 core specimens were obtained. Specimens were microscopically reviewed by pathology in the CT suite and placed in formalin solution. BioSentry tract sealant system was deployed at the biopsy site, and the biopsy needle was removed. A sterile occlusive dressing was applied to the biopsy site. The patient tolerated the procedure well. An immediate chest xray was ordered, per protocol. A negative biopsy does not exclude malignancy. Further imaging or clinical followup based on patient condition and degree of clinical suspicion for malignancy. Suggest rebiopsy, if biopsy results do not match with clinical scenario. IMPRESSION: 1. CT directed core needle biopsy of right upper lobe nodule using CT image guidance with image documentation as described. Pathology results are pending. 2. Procedural Sedation protocol utilized with independent monitoring by the department nurse. Procedures Radiology Radiology CT Procedures: 54499 Biopsy Lung
--- NOTE | 2024-01-24 12:45 | RAD_ITS ---
STUDY: X-RAY CHEST REASON FOR EXAM: Male, 53 years old. 2 hours post lung biopsy -- 2 hours post lung biopsy TECHNIQUE: PA inspiration expiration views. COMPARISON: Comparison is made with prior study done earlier in the day. FINDINGS: There is no evidence of pneumothorax on the 2 hour post right lung biopsy radiographs. RAD/Chest Insp/Exp 2 View IMPRESSION: There is no evidence of pneumothorax on the 2 hour post right lung biopsy radiographs. Electronically Signed: Valeriano Martin MD at 13:39 EDT ,
== END 2024-01-24 23:59 | disposition home or self-care (01) ==
LOC: CT 09:18
PROVIDERS: PCP Nurse Practitioner Family; Referring Provider Nurse Practitioner Acute Care; Visit Provider Nurse Practitioner Acute Care
DX: J84.10 Pulmonary fibrosis, unspecified (principal); Z00.01 Encounter for general adult medical examination with abnormal findings; Z12.5 Encounter for screening for malignant neoplasm of prostate
CPT/HCPCS: 32408; 36415; 71046; 77012; 80053; 80061; 84153; 85025; 85610; 85730; 88172; 88305; 88313; 88325; 88341; 88342; 99156; J7050; A4216; C2613

== ENCOUNTER → 2024-05-01 | Outpatient (CLI) | payer OTHER, SELFPAY ==
--- NOTE | 2024-05-01 13:00 | CT_ITS ---
STUDY: CT CHEST WITHOUT CONTRAST REASON FOR EXAM: Male, 53 years old. Follow lung mass RADIATION DOSAGE (If Supplied By Facility): CTDIvol = ( 7.62 ) mGy, DLP = ( 301.40 ) mGycm TECHNIQUE: Transaxial imaging was performed without the administration of intravenous contrast material. Individualized dose optimization techniques were used for this CT. COMPARISON: Comparison is made with prior study December 23, 2023. FINDINGS: CHEST There is evidence of hyperinflation and diffuse emphysematous changes. The previously seen heterogeneous cavitary lesion in the right upper lobe has become more solid at this time. There is evidence of a progressive increase markings surrounding the nodule. Correlation with a PET scan is recommended. There is no demonstrated pleural abnormality. There are calcifications of the coronary arteries. Normal mediastinum. Normal hilar regions. Normal unenhanced pulmonary arteries. Normal aorta arch and descending thoracic aorta. There are multi-level degenerative changes of the thoracic spine. There is no demonstrated abnormality of the visualized upper abdomen. CT/Chest without Contrast IMPRESSION: Persistent complex cystic structure in the right upper lobe as described. Present study is more solid in appearance as compared to prior study. Residual spiculation is seen. Correlation with the PET scan recommended. Electronically Signed: Valeriano Martin MD at 16:06 EDT ,
== END | disposition home or self-care (01) ==
LOC: CT 12:56
PROVIDERS: PCP Nurse Practitioner Family; Referring Provider Nurse Practitioner Acute Care; Visit Provider Nurse Practitioner Acute Care
DX: R91.8 Other nonspecific abnormal finding of lung field (principal)
CPT/HCPCS: 71250

== ENCOUNTER → 2024-06-26 | Outpatient (CLI) | payer OTHER, SELFPAY ==
--- NOTE | 2024-06-26 09:00 | PET_ITS ---
EXAMINATION: FDG-PET/CT ? INDICATIONS: 53-year-old male with a history of pulmonary nodularity. ? COMPARISON EXAMINATION: CT of the chest dated 05/01/2024. ? INDEX LESION SIZE SUV INTERPRETATION Right upper lung field, right upper lobe posterior 17.3 mm largest 3.0 max Fulfills quantitative criteria for viable neoplasm, histopathologic analysis is recommended ? Right upper lung field anterior 16.0 mm 2.8 max Fulfills quantitative criteria for viable neoplasm, histopathologic analysis recommended ? TECHNIQUE: Following the intravenous administration of 14.51 mCi of F-18 deoxyglucose via the right antecubital fossa, multiplanar image acquisitions of the head, neck, chest, abdomen and pelvis to the level of the midthigh, obtained at one-hour post radiopharmaceutical administration contemporaneously interpreted with the current CT of the chest, abdomen and pelvis dated 06/26/[address] of the chest study dated 05/01/2024 via coregistration reveal: ? SERUM GLUCOSE LEVEL:? 80 mg/dL? HEIGHT:?? 72 inches WEIGHT:?? 184 pounds ? FINDINGS: ? HEAD/NECK:? There is no evidence of abnormal increased glucose metabolism in the pharyngeal mucosal space, parapharyngeal space, oropharynx, bilateral-lateral and anterior neck, hypopharynx and distribution of the larynx. ? The visualized portion of the cerebral cortical-subcortical structures demonstrate symmetric and preserved glucose metabolism. ? CHEST:? Two separate foci of increased glucose concentration are noted in the right upper lung field generating calculated standard uptake values of 3.0 posteriorly with a maximal axial diameter of 17.3 mm and 2.8 anteriorly with a maximal axial diameter of 16.0 mm.?? The left ventricular myocardium is demonstrated, consistent with the [place]. ? CT of the chest demonstrates the following anatomic characteristics: Atherosclerotic calcification is defined in the thoracic aorta without evidence of dilatation, aneurysm formation.? Coronary arterial calcification is observed.? Mediastinal and bilateral axillary soft tissue densities are nonglucose avid.? Emphysematous changes are defined in the bilateral upper-mid lung zones.? ? ABDOMEN/PELVIS:? Normal physiologic distribution of the radiopharmaceutical is identified in the hepatic (3.5) and splenic parenchyma, both renal units, urinary bladder, and visualized intestinal tract. ? CT of the abdomen and pelvis is remarkable for the following: Atherosclerotic calcification is defined in the abdominal aorta without evidence of dilatation, aneurysm formation.? Pelvic arterial calcification is observed.? There is pancreatic calcification noted. ? SKELETAL:? There is no evidence of quantitatively significant enhanced glucose metabolism on meticulous inspection of the appendicular and axial skeletal structures. ? Degenerative changes defined in the thoracic and lumbar spine demonstrate no evidence of increased glucose metabolism. There are no sclerotic, mixed sclerotic-lytic, or primarily lytic changes defined in the axial skeletal structures with evidence of increased FDG uptake. ? PET/PET/CT Tumor Base -Thigh Init IMPRESSION:
== END | disposition home or self-care (01) ==
LOC: ONC 08:54
PROVIDERS: PCP Nurse Practitioner Family; Referring Provider Nurse Practitioner Acute Care; Visit Provider Nurse Practitioner Acute Care
DX: R91.1 Solitary pulmonary nodule (principal)
CPT/HCPCS: 78815; A9552

== ENCOUNTER → 2025-07-29 | Outpatient (CLI) | payer OTHER, SELFPAY ==
--- NOTE | 2025-07-29 15:04 | CT_ITS ---
PROCEDURE: CT CHEST AND ABD W/ CONTRAST 07/29/2025 REASON FOR EXAM: LUNG CA-IV ONLY History of prior right lung resection. TECHNIQUE: Chest and abdomen CT with intravenous contrast. Coronal and Sagittal reconstruction series were provided. One or more dose reduction techniques were used (e.g., Automated exposure control, adjustment of the mA and/or kV according to patient size, use of iterative reconstruction technique. PATIENT PREPARATION: Per protocol ORAL CONTRAST TYPE: None. CONTRAST: Isovue-300 VOLUME: 100mL RADIATION DOSE SUMMARY: CTDlvol: 11.5 mGy DLP: 966.93 mGycm COMPARISON: August 22, 2024. FINDINGS: CT CHEST: Hardware: None Lymph nodes: No suspicious hilar or mediastinal lymphadenopathy is seen. Heart and Vasculature: The heart is nonenlarged. No significant coronary artery calcification is present. Lungs and Airways: The patient is status post resection of the right upper lobe with volume loss. The previously seen emphysematous changes and nodular densities in the right upper lobe have been resected. No new mass lesion is seen. The left lung is clear. Pleura: No pleural effusion. CT ABDOMEN: Liver: Normal size. No mass. Gallbladder: Unremarkable Spleen: Normal size. Pancreas: Normal size without evidence of mass surrounding inflammation or ductal dilation. Adrenals: Unremarkable Kidneys: Normal renal sizes. No hydronephrosis. There is evidence of a 3.3 cm cyst in the lower pole of the left kidney. Bowel: Unremarkable Lymph nodes: Unremarkable. Vasculature: Mild diffuse atherosclerotic calcifications are noted. Peritoneum / Retroperitoneum: Unremarkable Bones: Demineralization of the thoracic vertebrae. CT/CT Chest AND Abd W/ Contrast IMPRESSION: Coronary artery calcification (CAC) is is absent Status post right upper lobectomy. Right renal cysts. Reading Location: [id number]
== END | disposition home or self-care (01) ==
LOC: CT 15:02
PROVIDERS: PCP Nurse Practitioner Family; Referring Provider Internal Medicine Medical Oncology; Visit Provider Internal Medicine Medical Oncology
DX: C34.11 Malignant neoplasm of upper lobe, right bronchus or lung (principal)
CPT/HCPCS: 71260; 74160; Q9967